=== PATIENT | female | born 1985 | race Caucasian/White ===

== ENCOUNTER 2018-06-28 12:37 | Emergency (ER) | payer OTHER ==
[2018-06-28 12:43] VITALS: BMI 41.1
--- NOTE | 2018-06-28 13:01 | PDOC ---
Attending Attestation - Resident Resident Name: Sa Meganira - ED Attending Attestation I have performed the following: I have examined & evaluated the patient, The case was reviewed & discussed with the resident, I agree w/resident's findings & plan, Exceptions are as noted - HPI HPI: 32 yo F history HTN, panic disorder presents with palpitations and chest tightness for past 3 days. She states she has been having a lot of anxiety, has history of panic attacks in the past. She used to take klonopin, has not been on it recently. Denies SOB, leg swelling, N/V, diaphoresis. She states she feels anxious then feels the palpitations afterwards, not the reverse. No prior heart history. - Physicial Exam PE: GENERAL: Awake, alert, and fully oriented, in no acute distress HEAD: No signs of trauma EYES: PERRLA, EOMI, sclera anicteric, conjunctiva clear ENT: Auricles normal inspection, hearing grossly normal, nares patent, oropharynx clear without exudates. Moist mucosa NECK: Normal ROM, supple, no lymphadenopathy, JVD, or masses LUNGS: Breath sounds equal, clear to auscultation bilaterally. No wheezes, and no crackles HEART: Regular rate and rhythm, normal S1 and S2, no murmurs, rubs or gallops ABDOMEN: Soft, nontender, normoactive bowel sounds. No guarding, no rebound. No masses EXTREMITIES: Normal range of motion, no edema. No clubbing or cyanosis. No cords, erythema, or tenderness NEUROLOGICAL: Cranial nerves II through XII grossly intact. Normal speech, normal gait SKIN: Warm, Dry, normal turgor, no rashes or lesions noted. - Medical Decision Making Pt with history of anxiety, presenting with palpitations. Low risk for ACS and PE by clinical eval. Labs wnl. Patient states she can f/u with Dr. Corona tomorrow.
--- NOTE | 2018-06-28 13:22 | PDOC ---
History of Present Illness - General Chief Complaint: Psychiatric Stated Complaint: FEELING ANXIOUS Time Seen by Provider: 06/28/18 12:49 History Source: Patient, Well Puller Head Used ([id number]) Exam Limitations: Language Barrier - History of Present Illness Initial Comments: 06/28/18 13:17 Pt is a 32yo f with PMH of HTN, panic disorder presenting to ED with complaints of palpitations and chest tightness that started 3 days ago at around 8pm. Pt says she started having palpitations and chest tightness and SOB. These would last briefly but have been coming and going every 6 hours or so since . She has not had symptoms like this before. She had symptoms again this morning which prompted her to come to the ED. Her last panic attack was early June when patient was in [place]. She states that at that time she felt more nervous and nauseous. She was given Klonopin because she was on this medication before which helped. Pt stopped taking Klonopin over a year ago because she says she was feeling better. She endorses slight headache and body ache after symptoms diminish. She denies changes in vision, tinnitus, dizziness, abdominal pain, n/v/d, urinary symptoms. LMP was 1 week ago. She denies hallucinations and HI/SI. PMD: Chloe PMH: htn Meds: atenolol, hctz Social: denies Allergies: pcn, asa Past History - Past Medical History Allergies/Adverse Reactions: Allergies Allergy/AdvReac Type Severity Reaction Status Date / Time aspirin Allergy Verified 06/28/18 12:43 Penicillins Allergy Verified 06/28/18 12:43 Home Medications: Ambulatory Orders Atenolol [Tenormin] 1 tab PO DAILY 06/28/18 Atenolol [Tenormin] 100 mg PO DAILY 06/28/18 Hydrochlorothiazide 12.5 mg PO AM 06/28/18 clonazePAM [Klonopin -] 1 tab PO BID 06/28/18 COPD: No HTN: Yes Psychiatric Problems: Yes (anxeity) - Suicide/Smoking/Psychosocial Hx Smoking History: Never smoked Have you smoked in the past 12 months: No Hx Alcohol Use: No Substance Use Type: None *Physical Exam - Vital Signs Last Vital Signs Temp Pulse Resp BP Pulse Ox 86 18 139/79 99 06/28/18 12:41 06/28/18 12:41 06/28/18 12:41 06/28/18 12:41 ED Treatment Course - LABORATORY CBC & Chemistry Diagram: 06/28/18 13:38 06/28/18 13:38 Medical Decision Making - Medical Decision Making 06/28/18 13:21 Pt is a 32yo f with PMH of HTN, panic disorder presenting to ED with complaints of palpitations and chest tightness that started 3 days ago at around 8pm. Pt says she started having palpitations and chest tightness and SOB 06/28/18 14:30 added on TSH EKG: nsr. T wave flattening of T in III, V4. inverted in V1, V2, V3. Normal NH and QTc. 06/28/18 14:41 *DC/Admit/Observation/Transfer Diagnosis at time of Disposition: Chest tightness, Palpitation - Discharge Dispostion Disposition: HOME Condition at time of disposition: Good Decision to Admit order: No - Referrals Referrals: Adrienne Torres MD [Primary Care Provider] - - Patient Instructions Printed Discharge Instructions: DI for Atypical Chest Pain, DI for Palpitations Additional Instructions: Hoy te vieron aqu por ansiedad, opresin en el pecho y palpitaciones. Tus pruebas fueron normales. Le recomiendo que eyal linda ifeanyi con el Dr. Corona para un mayor manejo y evaluacin de jazzy sntomas. Si sigues teniendo palpitaciones y te sientes mareado, creo que penny la kimbrough chad a un cardilogo. Un cardilogo afiliado a [facility] es el Dr. Duvall Regrese a la anthony de emergencias si las palpitaciones empeoran, tiene dificultad para respirar, se siente mareado, el dolor de pecho empeora, se desmaya, o si se presenta algn sntoma nuevo. Matthew You were seen here today for anxiety, chest tightness and palpitations. Your tests were normal. I recommend you make an appointment with Dr. Corona for further management and evaluation of your symptoms. If you continue to have palpitations and you feel lightheaded, I think it is worth seeing a opal polisher. A opal polisher affiliated with this hospital is Dr. Duvall Please come back to the emergency room if palpitations get worse, you feel short of breath, you feel lightheaded, chest pain gets worse, you pass out, or if any new concerning symptom develops. Thank you Print Language: [place] ISLAND[place] - Post Discharge Activity
[2018-06-28 13:44] LABS: BASO % 0.3 % (0-2.0); EOS % 1.2 % (0-4.5); HEMATOCRIT 39.6 % (32.4-45.2); LYMPH % 20.3 % (8-40); MCH 28.6 pg (25.7-33.7); MCHC 32.8 g/dl (32.0-36.0); MEAN CELL VOLUME 87.2 fl (80-96); MEAN PLT VOLUME 8.1 fl (7.5-11.1); NEUT % 73.2 % (42.8-82.8); PLATELET COUNT 275 K/MM3 (134-434); RBC 4.54 M/mm3 (3.60-5.2); RDW 13.3 % (11.6-15.6); WHITE BLOOD COUNT 11.1 K/mm3 (4.0-10.0)
[2018-06-28 14:16] LABS: ALBUMIN 3.9 g/dl (3.4-5.0); ALK PHOS 106 U/L (45-117); ANION GAP 9 MMOL/L (8-16); BILIRUBIN,TOTAL 0.3 mg/dL (0.2-1); BLOOD UREA NITROGEN 9 mg/dL (7-18); CALCIUM 9.3 mg/dL (8.5-10.1); CHLORIDE 101 mmol/L (98-107); CO2 28 mmol/L (21-32); CREATININE 0.6 mg/dL (0.55-1.3); GLUCOSE,RANDOM 137 mg/dL (74-106); SGOT/AST 39 U/L (15-37); SGPT/ALT 65 U/L (13-61); SODIUM 137 mmol/L (136-145); TOT PROT 7.7 g/dl (6.4-8.2)
[2018-06-28 14:54] VITALS: BP 116/68; PULSE 70; TEMP 98.1
--- NOTE | 2018-06-29 18:32 | EKG ---
Test Reason : Blood Pressure : / mmHG Vent. Rate : 085 BPM Atrial Rate : 085 BPM P-R Int : 160 ms QRS Dur : 086 ms QT Int : 370 ms P-R-T Axes : 026 030 023 degrees QTc Int : 440 ms NORMAL SINUS RHYTHM T WAVE ABNORMALITY, CONSIDER ANTERIOR ISCHEMIA ABNORMAL ECG NO PREVIOUS ECGS AVAILABLE Confirmed by JANELL LOMBARDO MD ([id number]) on 06/29/2018 6:31:40 PM Referred By: Confirmed By:JANELL LOMBARDO MD
== END 2018-06-28 15:13 | disposition home or self-care (01) ==
LOC: JER 12:37
DX: R07.9 Chest pain, unspecified (principal); R00.2 Palpitations; F41.9 Anxiety disorder, unspecified; Z88.0 Allergy status to penicillin; Z88.6 Allergy status to analgesic agent
CPT/HCPCS: 36415; 80053; 84443; 84484; 85025; 93005; 93010; 99283-25

== ENCOUNTER 2018-08-19 23:16 | Emergency (ER) | payer OTHER ==
[2018-08-19 23:26] VITALS: BP 140/94; PULSE 97; TEMP 98.1; BMI 41.7
--- NOTE | 2018-08-20 01:19 | PDOC ---
Attending Attestation - Resident Resident Name: Brayan Blackman - ED Attending Attestation I have performed the following: I have examined & evaluated the patient, The case was reviewed & discussed with the resident, I agree w/resident's findings & plan, Exceptions are as noted - HPI HPI: 08/20/18 07:10 33F pmh HTN, panic attacks here with cp. Px started at 9pm, radiating down L arm, worse with inspiration, states she took a klonopin of unknown dose that she purchased on the street. Symptoms have since resolved. - Physicial Exam PE: 08/20/18 07:14 Agree with exam as documented by resident - Medical Decision Making 08/20/18 07:14 Low risk for acs f/u ekg, cxr re-eval
--- NOTE | 2018-08-20 01:52 | PDOC ---
History of Present Illness - General Chief Complaint: Pain Stated Complaint: PANIC ATTACK Time Seen by Provider: 08/20/18 00:57 History Source: Patient Exam Limitations: Language Barrier (Phone network account manager used) - History of Present Illness Initial Comments: 08/20/18 01:43 Patient is 33F with history of HTN and panic attacks here today complaining of chest pain that onset suddenly at 9pm yesterday evening. Patient endorses pain that radiated to her left arm. Pain worsened with movement and inspiration. Pain has since improved and patient states that she feels like her prior costochondritis. LMP 1 day ago, denies leg swelling, prior blood clot, no recent travel, no control. Patient states that she took a "street klonopin ". Denies prior cardiac history. Past History - Past Medical History Allergies/Adverse Reactions: Allergies Allergy/AdvReac Type Severity Reaction Status Date / Time aspirin Allergy Verified 08/19/18 23:28 Penicillins Allergy Verified 08/19/18 23:28 Home Medications: Ambulatory Orders Atenolol [Tenormin -] 50 mg PO DAILY 08/20/18 Clonazepam [Klonopin] 1 mg PO DAILY 08/20/18 Hydrochlorothiazide [Hctz -] 12.5 mg PO DAILY 08/20/18 COPD: No HTN: Yes Psychiatric Problems: Yes (anxeity) - Suicide/Smoking/Psychosocial Hx Smoking History: Never smoked Have you smoked in the past 12 months: No Information on smoking cessation initiated: No Hx Alcohol Use: No Drug/Substance Use Hx: No Substance Use Type: None Review of Systems - Review of Systems Comments:: 08/20/18 01:52 GENERAL/CONSTITUTIONAL: No fever or chills. No weakness. HEAD, EYES, EARS, NOSE AND THROAT: No change in vision. No ear pain or discharge. No sore throat. CARDIOVASCULAR: +chest pain no shortness of breath RESPIRATORY: No cough, wheezing, or hemoptysis. GASTROINTESTINAL: No nausea, vomiting, diarrhea or constipation. GENITOURINARY: No dysuria, frequency, or change in urination. MUSCULOSKELETAL: + l shoulder pain. No neck or back pain. SKIN: No rash NEUROLOGIC: No headache, vertigo, loss of consciousness, or change in strength/ sensation. HEMATOLOGIC/LYMPHATIC: No anemia, easy bleeding, or history of blood clots. ALLERGIC/IMMUNOLOGIC: No hives or skin allergy. *Physical Exam - Vital Signs Last Vital Signs Temp Pulse Resp BP Pulse Ox 98.1 F 97 H 16 140/94 100 08/19/18 23:20 08/19/18 23:20 08/19/18 23:20 08/19/18 23:20 08/19/18 23:20 - Physical Exam Comments: 08/20/18 01:53 GENERAL: Awake, alert, and fully oriented, in no acute distress HEAD: No signs of trauma, normocephalic, atraumatic EYES: PERRLA, EOMI, sclera anicteric, conjunctiva clear ENT: Auricles normal inspection, hearing grossly normal, nares patent, oropharynx clear without exudates. Moist mucosa NECK: Normal ROM, supple, no lymphadenopathy, JVD, or masses LUNGS: No distress, speaks full sentences, clear to auscultation bilaterally HEART: Regular rate and rhythm, normal S1 and S2, no murmurs, rubs or gallops, peripheral pulses normal and equal bilaterally. ABDOMEN: Soft, nontender, normoactive bowel sounds. No guarding, no rebound. No masses EXTREMITIES: Normal inspection, Normal range of motion, no edema. No clubbing or cyanosis. NEUROLOGICAL: Cranial nerves II through XII grossly intact. Normal speech, normal gait, no focal sensorimotor deficits SKIN: Warm, Dry, normal turgor, no rashes or lesions noted. Moderate Sedation - Procedure Monitoring Vital Signs: Procedure Monitoring Vital Signs Temperature 98.1 F 08/19/18 23:20 Pulse Rate 97 H 08/19/18 23:20 Respiratory Rate 16 08/19/18 23:20 Blood Pressure 140/94 08/19/18 23:20 O2 Sat by Pulse Oximetry (%) 100 08/19/18 23:20 ED Treatment Course - ADDITIONAL ORDERS Additional order review: Laboratory Results 08/20/18 01:33 Urine HCG, Qual Negative - RADIOLOGY Radiology Studies Ordered: Category Date Time Status CHEST PA & LAT [RAD] Stat Radiology 08/20/18 01:13 Ordered Medical Decision Making - Medical Decision Making 08/20/18 01:53 Patient is 33F here today with chest pain radiating to her arm. Atypical for ACS , no syncopal symptoms, no focal motor deficits suggestive of stroke. Will evaluate with ekg, upreg, cxr. No PE risk factors. Likely discharge home. EKG shows normal sinus rhythm with rate of 100.No st elevations/depressions. Normal axis. Normal intervals. Inverted t wave in III. U preg negative. 08/20/18 05:58 CXR shows no acute cardiopulmonary process. Will discharge home with primary care follow up. *DC/Admit/Observation/Transfer Diagnosis at time of Disposition: Atypical chest pain - Discharge Dispostion Disposition: HOME Condition at time of disposition: Good Decision to Admit order: No - Referrals Referrals: Adrienne Torres MD [Primary Care Provider] - - Patient Instructions Printed Discharge Instructions: DI for Atypical Chest Pain Additional Instructions: Please follow up with your primary care doctor this week. Please return if you have any new worsening or concerning symptoms, especially increasing pain, fever, and shortness of breath. - Post Discharge Activity
--- NOTE | 2018-08-20 12:46 | EKG ---
Test Reason : Blood Pressure : / mmHG Vent. Rate : 100 BPM Atrial Rate : 100 BPM P-R Int : 140 ms QRS Dur : 076 ms QT Int : 360 ms P-R-T Axes : 018 017 001 degrees QTc Int : 464 ms NORMAL SINUS RHYTHM MINIMAL VOLTAGE CRITERIA FOR LVH, MAY BE NORMAL VARIANT BORDERLINE ECG WHEN COMPARED WITH ECG OF 20-AUG-2018 01:37, NO SIGNIFICANT CHANGE WAS FOUND Confirmed by ALEE DODGE, ROMARIO ([id number]) on 08/20/2018 12:45:21 PM Referred By: Confirmed By:ROMARIO VICKERS MD
== END 2018-08-20 06:08 | disposition home or self-care (01) ==
LOC: JER 23:16
DX: R07.9 Chest pain, unspecified (principal); F41.9 Anxiety disorder, unspecified
CPT/HCPCS: 71046-TC-FY; 84703; 93005; 93010; 99282-25

== ENCOUNTER 2018-11-21 02:24 | Emergency (ER) | payer OTHER ==
--- NOTE | 2018-11-21 02:51 | PDOC ---
History of Present Illness - General Stated Complaint: HEADACHE/DIABETIC Time Seen by Provider: 11/21/18 02:51 - History of Present Illness Initial Comments: 11/21/18 04:22 htn,dm ,panic attack headache friday radiating from back to front mild eye sensitivity and neck pain R hand numbness and tingling no n/v/ cp, sob gradual onset blood sugar 213 at pcp wed Tylenol dfor headache with relief for 1 hour went to [facility] and she got Tylenol for that history of headaches, no headaches that lasted this long before Past History - Past Medical History Allergies/Adverse Reactions: Allergies Allergy/AdvReac Type Severity Reaction Status Date / Time aspirin Allergy Verified 11/21/18 02:52 ibuprofen [From Motrin] Allergy Verified 11/21/18 03:24 Penicillins Allergy Verified 11/21/18 02:52 Home Medications: Ambulatory Orders Atenolol [Tenormin -] 50 mg PO DAILY 08/20/18 Hydrochlorothiazide [Hctz -] 12.5 mg PO DAILY 08/20/18 metFORMIN HCL [Metformin HCl] 500 mg PO DAILY 11/21/18 COPD: No HTN: Yes Psychiatric Problems: Yes (anxeity) - Suicide/Smoking/Psychosocial Hx Smoking History: Never smoked Have you smoked in the past 12 months: No Hx Alcohol Use: No Drug/Substance Use Hx: No Substance Use Type: None ED Treatment Course - LABORATORY CBC & Chemistry Diagram: 11/21/18 04:44 11/21/18 04:44 Medical Decision Making - Medical Decision Making 11/21/18 04:25 ED Course: migriane tension CT head to r/o intracranial pathology 11/21/18 06:27 11/21/18 06:30 Patient reassessed, feels improved. wants to go home *DC/Admit/Observation/Transfer Diagnosis at time of Disposition: Migraine - Discharge Dispostion Disposition: HOME Condition at time of disposition: Stable Decision to Admit order: No - Referrals Referrals: Adrienne Torres MD [Primary Care Provider] - Felice Price MD [Staff Physician] - - Patient Instructions Printed Discharge Instructions: DI for Migraine Additional Instructions: You were seen in the ED for complaints of headache. In the ED you were evaluated with labwork and imaging. Your results were unremarkable. There does not appear to be an acute need for immediate hospitalization. You are advised to follow up with your Primary Care Physician within 1 week. You were given a referral to Neurology and advised to follow up within 1 week. Take over the counter Tylenol and Motrin for relief. Return to the ED immediately if you experience worsening headache, neck pain, nausea, vomiting, changes in vision or hearing or loss of consciousness. Usted fue visto en el servicio de urgencias por quejas de dolor de stu. En el servicio de urgencias se le evalu con trabajo de laboratorio e imgenes. Ayala resultados no fueron notables. No parece jordan linda necesidad aguda de hospitalizacin inmediata. Se recomienda realizar un seguimiento con patel mdico de atencin primaria dentro de 1 semana. Se le jose linda referencia a Neurologa y se le recomend hacer un seguimiento dentro de 1 semana. Donis el contador Tylenol y Motrin para el alivio. Regrese a la anthony de urgencias inmediatamente si experimenta un empeoramiento del dolor de stu, dolor de sheila, nuseas, vmitos, cambios en la visin, audicin o prdida de la conciencia. - Post Discharge Activity
[2018-11-21 03:22] VITALS: BMI 43.2
[2018-11-21] MEDS ORDERED: PROCHLORPERAZINE MALEATE 5 MG TABLET PO ONE (04:25)
[2018-11-21] MEDS ORDERED: SODIUM CHLORIDE 1,000 ML IV SCH (04:30)
[2018-11-21] MEDS ORDERED: PROCHLORPERAZINE MALEATE 5 MG TABLET ONE (04:31)
[2018-11-21 04:55] LABS: BASO % 0.5 % (0-2.0); EOS % 1.3 % (0-4.5); HEMOGLOBIN 12.8 GM/dL (10.7-15.3); LYMPH % 31.3 % (8-40); MCH 29.4 pg (25.7-33.7); MCHC 33.7 g/dl (32.0-36.0); MEAN CELL VOLUME 87.3 fl (80-96); MEAN PLT VOLUME 8.5 fl (7.5-11.1); MONO % 5.9 % (3.8-10.2); PLATELET COUNT 277 K/MM3 (134-434); RBC 4.35 M/mm3 (3.60-5.2); RDW 13.3 % (11.6-15.6); WHITE BLOOD COUNT 9.7 K/mm3 (4.0-10.0)
[2018-11-21 05:11] LABS: PH,URINE 5.5 (5.0-8.0); URINE APPEARANCE CLEAR; URINE BILIRUBIN NEGATIVE (NEGATIVE); URINE COLOR YELLOW; URINE GLUCOSE (UA) NEGATIVE (NEGATIVE); URINE KETONE NEGATIVE (NEGATIVE); URINE LEUK ESTERASE NEGATIVE (NEGATIVE); URINE NITRITE NEGATIVE (NEGATIVE); URINE PROTEIN NEGATIVE (NEGATIVE); URINE UROBILINOGEN 0.2 mg/dL (0.2-1.0)
--- NOTE | 2018-11-21 05:18 | PDOC ---
Attending Attestation - Resident Resident Name: Yolande Wu - ED Attending Attestation I have performed the following: I have examined & evaluated the patient, The case was reviewed & discussed with the resident, I agree w/resident's findings & plan - HPI HPI: 11/21/18 06:40 Pt comes with headache; states that she has known HAs, however this VILLALPANDO has been lasting extra long. - Physicial Exam PE: 11/21/18 05:58 Agree with resident exam - Medical Decision Making 11/21/18 05:30 All labs are normal. 11/22/18 01:50 Patient Name: RUFINO BETANCOURT THIS IS A PRELIMINARY REPORT FROM [facility] DATE OF SERVICE: 2018-11-21 05:48:25 IMAGES: 137 EXAM: HEAD CT WITHOUT CONTRAST HISTORY: Headache COMPARISON: None. FINDINGS: The ventricular system is midline and nondilated. The sulcal pattern is normal for the patient's age. There is no bleed, mass, extra-axial fluid collection or mass effect. No skull fracture or skull lesion is identified. The visualized paranasal sinuses and mastoid air cells are clear other than mild mucosal thickening in the maxillary sinuses. IMPRESSION: No acute pathology. Pt sent home; follow with neuro; no need for LP at this time; however pt understands that she needs to r/o pseudotumor cerebri for continuing or worsening VILLALPANDO.
[2018-11-21 05:23] LABS: ALBUMIN 3.9 g/dl (3.4-5.0); ALK PHOS 99 U/L (45-117); ANION GAP 6 MMOL/L (8-16); BILIRUBIN,TOTAL 0.3 mg/dL (0.2-1); BLOOD UREA NITROGEN 10 mg/dL (7-18); CALCIUM 9.2 mg/dL (8.5-10.1); CHLORIDE 102 mmol/L (98-107); CO2 29 mmol/L (21-32); CREATININE 0.5 mg/dL (0.55-1.3); GLUCOSE,RANDOM 109 mg/dL (74-106); SGOT/AST 29 U/L (15-37); SGPT/ALT 69 U/L (13-61); SODIUM 137 mmol/L (136-145); TOT PROT 7.7 g/dl (6.4-8.2)
[2018-11-21 06:34] VITALS: BP 113/82; TEMP 98.1
[2018-11-21 06:39] VITALS: PULSE 77
== END 2018-11-21 06:44 | disposition home or self-care (01) ==
LOC: JER 02:24
DX: G43.909 Migraine, unspecified, not intractable, without status migrainosus (principal)
CPT/HCPCS: 36415; 70450-TC; 80053; 81003; 82962; 84703; 85025; 99282-25; J7030

== ENCOUNTER 2018-11-26 02:23 | Emergency (ER) | payer OTHER ==
--- NOTE | 2018-11-26 02:33 | PDOC ---
History of Present Illness - General Stated Complaint: PAIN Time Seen by Provider: 11/26/18 02:32 History Source: Patient Exam Limitations: No Limitations - History of Present Illness Initial Comments: 11/26/18 02:54 33 year old female with PMH HTN, DM, panic disorder presented to ED for evaluation of rash to chest since 0100. She stated she is nervous about her diabetes, and feels like she is experiencing a panic attack. She said yesterday her sugar was int he 130s and the day prior her sugar was in the 180s, which has been making her nervous. She stated that she often gets a rash when she has a panic attack. She denied fever, chills, nausea, vomiting, shortness of breath , cough, abdominal pain, chest pain. Allergies: ASA, ibuprofen, PCN Past History - Past Medical History Allergies/Adverse Reactions: Allergies Allergy/AdvReac Type Severity Reaction Status Date / Time aspirin Allergy Verified 11/26/18 02:47 ibuprofen [From Motrin] Allergy Verified 11/26/18 02:47 Penicillins Allergy Verified 11/26/18 02:47 Home Medications: Ambulatory Orders Atenolol [Tenormin -] 50 mg PO DAILY 08/20/18 Hydrochlorothiazide [Hctz -] 12.5 mg PO DAILY 08/20/18 metFORMIN HCL [Metformin HCl] 500 mg PO DAILY 11/21/18 COPD: No Diabetes: Yes HTN: Yes Psychiatric Problems: Yes (anxeity) - Suicide/Smoking/Psychosocial Hx Smoking History: Never smoked Have you smoked in the past 12 months: No Hx Alcohol Use: No Drug/Substance Use Hx: No Substance Use Type: None Review of Systems - Review of Systems Able to Perform ROS?: Yes Comments:: 11/26/18 02:56 General: denied fever, chills, generalized weakness. HEENT: denied sore throat, rhinorrhea, ear pain. Heart: denied chest pain, palpitations, syncope, diaphoresis. Respiratory: denied shortness of breath, cough, sputum production, hemoptysis. Abdomen: denied abdominal pain, nausea, vomiting, diarrhea, constipation, blood in stool. : denied dysuria, increased urinary frequency, hematuria, urinary incontinence , flank pain. Back: denied back pain. Musculoskeletal: denied joint pain, muscle pain, joint swelling. Neurological: denied headache, dizziness, numbness, tingling, weakness. Skin: admitted to rash. denied laceration, abrasion. *Physical Exam - Physical Exam Comments: 11/26/18 02:56 Constitutional: Well-nourished, Well-developed, appearing stated age. HEENT: head is normocephalic, atraumatic. EOMI. PERRLA. Neck: supple. Full ROM. Heart: regular rhythm. no murmurs, rubs or gallops. Lungs: clear to auscultation bilaterally. no crackles, rhonchi or wheezing. no stridor. Abdomen: soft, nontender. normal bowel sounds. no rebound, guarding, masses. Extremities: peripheral pulses intact. no lower extremity edema. Neurological: CN 2-12 grossly intact. moves all four extremities. Psych: awake, alert, oriented x3. follows commands. answers questions appropriately. Skin: macular erythematous rash to anterior chest. Medical Decision Making - Medical Decision Making 11/26/18 02:56 33 year old female with above PMH presented to ED for evaluation of rash to chest. Initial Vital Signs Temp Pulse Resp BP Pulse Ox 98.0 F 92 H 18 136/81 100 11/26/18 02:49 11/26/18 02:49 11/26/18 02:49 11/26/18 02:49 11/26/18 02:49 Afebrile. No tachycardia. No tachypnea. Mild hypertension. No hypoxia on room air. Labs ordered: BGM Imaging ordered: none Medications ordered: none 11/26/18 03:25 BGM 117 EKG performed at 0313: rate 90, regular rhythm, normal axis, normal intervals, flipped T in III, flat T in V4/aVF, otherwise no acute ST changes. Similar to prior EKG performed 06/28/18. Rash resolved, no longer present. Pt reported she is feeling better. *DC/Admit/Observation/Transfer Diagnosis at time of Disposition: Rash, Palpitations - Discharge Dispostion Disposition: HOME Condition at time of disposition: Improved Decision to Admit order: No - Referrals Referrals: Adrienne Torres MD [Primary Care Provider] - - Patient Instructions Printed Discharge Instructions: DI for Diabetes Type 2, DI for Panic Disorder Additional Instructions: You were seen today for rash and palpitations. Your EKG was normal. Your sugar was normal. Follow up with your primary care doctor in 1-2 days. Bring the paperwork given to you today to your appointment. Return to the Emergency Department for chest pain, shortness of breath, palpitations, lightheadedness like you may pass out, fever, vomiting, severe back pain or any other new, worsening or severe symptoms. - Post Discharge Activity Forms/Work/School Notes: Back to Work
[2018-11-26 02:51] VITALS: BMI 41.5
--- NOTE | 2018-11-26 03:20 | PDOC ---
Attending Attestation - Resident Resident Name: Chapis Ellison - ED Attending Attestation I have performed the following: I have examined & evaluated the patient, The case was reviewed & discussed with the resident, I agree w/resident's findings & plan - HPI HPI: 11/26/18 03:17 33 year old female with PMH HTN, DM, panic disorder presented to ED for evaluation of rash to chest since 0100. brief episode of palpitations when she woke up with panic attack. she had burning rash and sensation to her chest that caused her anxiety. - Physicial Exam PE: 11/26/18 03:18 NAD, well appearing, PERRL, EOMI, MMM, nl conjunctiva, anicteric; neck supple. lungs clear, RRR, abdomen soft nontender obese. LANDAVERDE x4, no focal neuro deficits. No peripheral edema. normal color for ethnicity, WWP. no rash on chest , abdomen or back. 11/26/18 03:35 - Medical Decision Making 11/26/18 03:18 hpi as documented VS reviewed, wnl EKG normal sinus rhythm at 67, no interval abnormalities, narrow QRS, ST and T wave segments and morphology normal. Nonspecific T wave abnormalities similar to prior with TWI in III, flattening in AVF blood sugar normal here. well appearing otherwise. NAD. no recurrence of sx, no cp or sob, or respiratory distress. no rash on exam dispo: discharge in stable condition, return precautions, anxiolysis and stress reduction, benadryl prn if needed for the rash. pcp followup. Pt informed of my clinical impression, treatment recommendations and disposition plan. All questions answered to patient's satisfaction and expressed understanding and comfort with this. Reasons for returning to the ED sooner discussed including new or persistent/worsening symptoms with the patient otherwise, follow up with primary care physician. At the time of discharge, the patient is alert, clinically improved, tolerating po and verbalizes understanding of instructions, satisfied with the care received and felt comfortable with the plan. Patient does not suffer from an acute life- threatening medical condition at this time she is safe for outpatient follow- up. 11/26/18 03:26 11/26/18 03:33 11/26/18 03:35 Heart Score/ECG Review #1 ECG reviewed & interpreted by me at: 03:15 General ECG Interpretation: Sinus Rhythm, Normal Rate, Normal Intervals Compared to previous ECG there are: No significant change 11/26/18 03:27 EKG normal sinus rhythm , no interval abnormalities, narrow QRS, ST and T wave segments and morphology normal. Nonspecific T wave abnormalities TWI in III, flattening in AVF, similar to prior.
[2018-11-26 03:54] VITALS: BP 128/68; PULSE 82; TEMP 98.1
--- NOTE | 2018-11-26 12:14 | EKG ---
Test Reason : Blood Pressure : / mmHG Vent. Rate : 090 BPM Atrial Rate : 090 BPM P-R Int : 144 ms QRS Dur : 074 ms QT Int : 374 ms P-R-T Axes : 021 016 004 degrees QTc Int : 457 ms NORMAL SINUS RHYTHM MINIMAL VOLTAGE CRITERIA FOR LVH, MAY BE NORMAL VARIANT BORDERLINE ECG WHEN COMPARED WITH ECG OF 20-AUG-2018 01:38, NO SIGNIFICANT CHANGE WAS FOUND Confirmed by ALEE ODDGE, ROMARIO ([id number]) on 11/26/2018 12:13:49 PM Referred By: Confirmed By:ROMARIO VICKERS MD
== END 2018-11-26 03:55 | disposition home or self-care (01) ==
LOC: JER 02:23
DX: R21 Rash and other nonspecific skin eruption (principal); R00.2 Palpitations; E11.9 Type 2 diabetes mellitus without complications; Z79.84 Long term (current) use of oral hypoglycemic drugs; I10 Essential (primary) hypertension; F41.0 Panic disorder [episodic paroxysmal anxiety]
CPT/HCPCS: 82962; 93005; 93010; 99282-25

== ENCOUNTER 2019-02-14 17:28 | Emergency (ER) | payer OTHER ==
[2019-02-14 17:34] VITALS: BP 149/81; PULSE 80; TEMP 98.4; BMI 88.2
--- NOTE | 2019-02-14 18:32 | PDOC ---
History of Present Illness - General Chief Complaint: Chest Pain Stated Complaint: LOW BLOOD SUGR Time Seen by Provider: 02/14/19 18:13 History Source: Patient Exam Limitations: No Limitations - History of Present Illness Initial Comments: 02/14/19 18:27 HISTORY OF PRESENT ILLNESS: This is a 33-year-old woman past medical history of anxiety, hypertension, diabetes (medication DC'd one month ago after resulting within normal a1c) presents emergency for evaluation of midsternal chest pain starting at approximately 4 AM. Patient reports she woke up at 4 AM feeling like her heart was racing. She checked her blood sugar the time and had a result of 27 mg/dL. Patient had some juice and the fluttering sensation in her chest stopped. Patient with continued midsternal chest pain since that time until now. Patient denies any shortness of breath, fevers, chills, nausea, vomiting or sweating. She reports the pain worsens when she pushes on it or moves her arms. No recent travel or sick contacts. PAST MEDICAL HISTORY: see HPI SURGICAL HISTORY: Denies ALLERGIES: ASA, motrin, PCN REVIEW OF SYSTEMS General/Constitutional: Denies fever or chills. Denies weakness, weight change. HEENT: Denies change in vision. Denies ear pain or discharge. Denies sore throat. Cardiovascular: see HPI Respiratory: Denies cough, wheezing, or hemoptysis. Gastrointestinal: Denies nausea, vomiting, diarrhea or constipation. Denies rectal bleeding. Genitourinary: Denies dysuria, frequency, or change in urination. Musculoskeletal: Denies joint or muscle swelling or pain. Denies neck or back pain. Skin and breasts: Denies rash or easy bruising. Neurologic: Denies headache, vertigo, loss of consciousness, or loss of sensation. Psychiatric: Denies depression or anxiety. Endocrine: see HPI Hematologic/Lymphatic: Denies anemia, easy bleeding, or history of blood clots. Allergic/Immunologic: Denies hives or skin allergy. Denies latex allergy. PHYSICAL EXAM General Appearance: Well-appearing, appropriately dressed. No apparent distress , no intoxication. HEENT: EOMI, PERRLA, normal ENT inspection, normal voice, TMs normal, pharynx normal. No conjunctival pallor. No photophobia, scleral icterus. Neck: Supple. Trachea midline. No tenderness, rigidity, carotid bruit, stridor , lymphadenopathy, or thyromegaly. Respiratory/Chest: Lungs CTAB. No shortness of breath, chest tenderness, respiratory distress, accessory muscle use. No crackles, rales, rhonchi, stridor , wheezing, dullness Cardiovascular: RRR. S1, S2. No JVD, murmur, bradycardia, tachycardia. Reproducible pain over the distal third of the sternum with light palpation. Vascular Pulses: Dorsalis-Pedis (R): 2+, Dorsalis-Pedis (L): 2+ Gastrointestinal/Abdominal: Normal bowel sounds. Abdomen soft, non-distended. No tenderness or rebound tenderness. No organomegaly, pulsatile mass, guarding, hernia, hepatomegaly, splenomegaly. Lymphatic: No adenopathy, tenderness. Musculoskeletal/Extremities: Normal inspection. FROM of all extremities, normal capillary refill. Pelvis Stable. No CVA tenderness. No tenderness to extremities, pedal edema, swelling, erythema or deformity. Integumentary: Appropriate color, dry, warm. 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 Fully oriented, alert. Appropriate mood/affect. Motor strength 5/5. No appreciable EOM palsy, facial droop or sensory deficit. Past History - Past Medical History Allergies/Adverse Reactions: Allergies Allergy/AdvReac Type Severity Reaction Status Date / Time aspirin Allergy Verified 02/14/19 17:34 ibuprofen [From Motrin] Allergy Verified 02/14/19 17:34 Penicillins Allergy Verified 02/14/19 17:34 Home Medications: Ambulatory Orders Atenolol [Tenormin -] 50 mg PO DAILY 08/20/18 Hydrochlorothiazide [Hctz -] 12.5 mg PO DAILY 08/20/18 COPD: No Diabetes: Yes HTN: Yes Psychiatric Problems: Yes (anxeity) - Immunization History Td Vaccination: Yes TDAP Vaccination: Yes Immunization Up to Date: Yes - Suicide/Smoking/Psychosocial Hx Smoking History: Never smoked Have you smoked in the past 12 months: No Hx Alcohol Use: No Drug/Substance Use Hx: No Substance Use Type: None *Physical Exam - Vital Signs Last Vital Signs Temp Pulse Resp BP Pulse Ox 98.4 F 80 18 149/81 99 02/14/19 17:33 02/14/19 17:33 02/14/19 17:33 02/14/19 17:33 02/14/19 17:33 ED Treatment Course - LABORATORY CBC & Chemistry Diagram: 02/14/19 18:42 02/14/19 18:42 - ADDITIONAL ORDERS Additional order review: Laboratory Results 02/14/19 02/14/19 02/14/19 18:58 18:42 18:42 PT with INR 13.50 H INR 1.14 H Sodium 139 Potassium 3.7 Chloride 104 Carbon Dioxide 30 Anion Gap 5 L BUN 10.9 Creatinine 0.7 Est GFR (CKD-EPI)AfAm 132.87 Est GFR (CKD-EPI)NonAf 114.64 POC Glucometer Random Glucose 106 Calcium 9.5 Magnesium 2.3 Total Bilirubin 0.2 AST 23 ALT 47 Alkaline Phosphatase 101 Creatine Kinase 111 Troponin I < 0.02 Total Protein 7.8 Albumin 4.2 Urine HCG, Qual Negative 02/14/19 18:31 PT with INR INR Sodium Potassium Chloride Carbon Dioxide Anion Gap BUN Creatinine Est GFR (CKD-EPI)AfAm Est GFR (CKD-EPI)NonAf POC Glucometer 104 Random Glucose Calcium Magnesium Total Bilirubin AST ALT Alkaline Phosphatase Creatine Kinase Troponin I Total Protein Albumin Urine HCG, Qual 02/14/19 02/14/19 18:42 18:31 RBC 4.59 MCV 85.9 MCHC 33.6 RDW 13.4 MPV 8.4 Neutrophils % 63.5 Lymphocytes % 27.7 Monocytes % 6.5 Eosinophils % 1.4 Basophils % 0.9 POC Glucometer 104 - RADIOLOGY Radiology Studies Ordered: Category Date Time Status CHEST PA & LAT [RAD] Stat Radiology 02/14/19 18:22 Taken Medical Decision Making - Medical Decision Making 02/14/19 18:30 A/P: 33-year-old woman with mid sternal chest pain after episode of hypoglycemia As pain is reproducible this is likely a costochondritis. Given patient's history I will rule out ACS, pneumonia. Patient has no risk factors for PE. Labs including cardiac profile Fingerstick EKG Chest x-ray Urine Reassess 02/14/19 20:26 EKG sinus rhythm with rate of 88. Normal intervals present. Normal axis noted. T -wave inversions present in V1. T-wave flattening noted in V2 and V3. No and T elevations or depressions noted. CBC is unremarkable. Chemistries are unremarkable including troponin less than 0.02 Coagulation profile is within normal limits Chest x-ray as read by me: Angles are sharp. Cardiac silhouette is mildly enlarged but unchanged from previous study. Lung luna are clear without infiltrates or consolidations present I'll discharge the patient home to follow-up with her primary doctor. *DC/Admit/Observation/Transfer Diagnosis at time of Disposition: Hypoglycemia, Musculoskeletal chest pain - Discharge Dispostion Disposition: HOME Condition at time of disposition: Improved Decision to Admit order: No - Referrals - Patient Instructions Additional Instructions: Take Tylenol or Motrin as directed by manufacturers instructions as needed for pain. Your emergency department evaluation is incomplete and see follow-up with her regular doctor. Return to emergency department for any new or worsening symptoms. Thank you very much for choosing us to provide your emergent health care needs. [place] Tylenol o Motrin yolanda lo indican las instrucciones del fabricante segn sea necesario para el dolor. La evaluacin de patel departamento de emergencias est incompleta y chad el seguimiento con patel mdico de cabecera. Regrese al departamento de emergencias para cualquier sntoma nuevo o que empeore. Muchas kolton por elegirnos para satisfacer jazzy necesidades de atencin mdica de emergencia. - Post Discharge Activity
[2019-02-14 18:54] LABS: BASO % 0.9 % (0-2.0); EOS % 1.4 % (0-4.5); HEMATOCRIT 39.4 % (32.4-45.2); HEMOGLOBIN 13.2 GM/dL (10.7-15.3); LYMPH % 27.7 % (8-40); MCH 28.8 pg (25.7-33.7); MCHC 33.6 g/dl (32.0-36.0); MEAN CELL VOLUME 85.9 fl (80-96); MEAN PLT VOLUME 8.4 fl (7.5-11.1); MONO % 6.5 % (3.8-10.2); NEUT % 63.5 % (42.8-82.8); PLATELET COUNT 301 K/MM3 (134-434); RBC 4.59 M/mm3 (3.60-5.2); RDW 13.4 % (11.6-15.6); WHITE BLOOD COUNT 10.7 K/mm3 (4.0-10.0)
[2019-02-14 19:20] LABS: ALBUMIN 4.2 g/dl (3.4-5.0); ALK PHOS 101 U/L (45-117); ANION GAP 5 MMOL/L (8-16); BILIRUBIN,TOTAL 0.2 mg/dL (0.2-1); BLOOD UREA NITROGEN 10.9 mg/dL (7-18); CALCIUM 9.5 mg/dL (8.5-10.1); CHLORIDE 104 mmol/L (98-107); CO2 30 mmol/L (21-32); CREATININE 0.7 mg/dL (0.55-1.3); GLUCOSE,RANDOM 106 mg/dL (74-106); MAGNESIUM 2.3 mg/dL (1.8-2.4); POTASSIUM 3.7 mmol/L (3.5-5.1); SGOT/AST 23 U/L (15-37); SGPT/ALT 47 U/L (13-61); SODIUM 139 mmol/L (136-145); TOT PROT 7.8 g/dl (6.4-8.2)
[2019-02-14 19:24] LABS: INR 1.14 (0.83-1.09); PROTHROMBIN TIME (PATIENT) 13.5 SEC (9.7-13.0)
--- NOTE | 2019-02-15 11:20 | EKG ---
Test Reason : Blood Pressure : / mmHG Vent. Rate : 088 BPM Atrial Rate : 088 BPM P-R Int : 164 ms QRS Dur : 080 ms QT Int : 370 ms P-R-T Axes : 019 031 020 degrees QTc Int : 447 ms NORMAL SINUS RHYTHM NORMAL ECG WHEN COMPARED WITH ECG OF 26-NOV-2018 03:13, NO SIGNIFICANT CHANGE WAS FOUND Confirmed by RONEY STERLING MD ([id number]) on 02/15/2019 11:20:08 AM Referred By: Confirmed By:RONEY STERLING MD
== END 2019-02-14 20:02 | disposition home or self-care (01) ==
LOC: JER 17:28
DX: E11.649 Type 2 diabetes mellitus with hypoglycemia without coma (principal); F41.9 Anxiety disorder, unspecified; I10 Essential (primary) hypertension
CPT/HCPCS: 36415; 71046-TC-FY; 80053; 82550; 82962; 83735; 84484; 84703; 85025; 85610; 93005; 93010; 99283-25

== ENCOUNTER 2019-08-10 11:28 | Emergency (ER) | payer OTHER ==
[2019-08-10 11:58] VITALS: BP 114/64; PULSE 65; TEMP 98.5; BMI 38.9
[2019-08-10 12:45] LABS: BASO % 0.9 % (0-2.0); EOS % 1.9 % (0-4.5); HEMATOCRIT 41.1 % (32.4-45.2); HEMOGLOBIN 13.7 GM/dL (10.7-15.3); LYMPH % 27.1 % (8-40); MCH 28.9 pg (25.7-33.7); MCHC 33.2 g/dl (32.0-36.0); MEAN PLT VOLUME 8.4 fl (7.5-11.1); MONO % 5.9 % (3.8-10.2); NEUT % 64.2 % (42.8-82.8); PLATELET COUNT 321 K/MM3 (134-434); RBC 4.72 M/mm3 (3.60-5.2); RDW 13.7 % (11.6-15.6); WHITE BLOOD COUNT 9.5 K/mm3 (4.0-10.0)
[2019-08-10 12:58] LABS: INR 1.07 (0.83-1.09); PROTHROMBIN TIME (PATIENT) 12.6 SEC (9.7-13.0)
[2019-08-10] MEDS ORDERED: SODIUM CHLORIDE 0.9% 500 ML INFUS.BAG IV ONE (13:16)
[2019-08-10] MEDS ORDERED: METOCLOPRAMIDE HCL INJECTION 10 MG/2 ML VIAL IVPUSH ONE (13:16)
[2019-08-10] MEDS ORDERED: ACETAMINOPHEN 1000 MG/100 ML VIAL (NON FORMULARY) IVPB ONE (13:16)
[2019-08-10 13:26] LABS: ALBUMIN 3.9 g/dl (3.4-5.0); BILIRUBIN,TOTAL 0.3 mg/dL (0.2-1); BLOOD UREA NITROGEN 9.8 mg/dL (7-18); CALCIUM 9.6 mg/dL (8.5-10.1); CREATININE 0.6 mg/dL (0.55-1.3); POTASSIUM 3.8 mmol/L (3.5-5.1); TOT PROT 7.9 g/dl (6.4-8.2)
[2019-08-10] MEDS ORDERED: ACETAMINOPHEN INJECTION 100 ML IVPB ONE (13:51)
[2019-08-10] MEDS ORDERED: METOCLOPRAMIDE HCL INJECTION 10 MG/2 ML VIAL ONE (13:55)
--- NOTE | 2019-08-10 14:36 | PDOC ---
History of Present Illness - General Chief Complaint: Headache Stated Complaint: HEADACHE Time Seen by Provider: 08/10/19 12:00 - History of Present Illness Initial Comments: 08/10/19 14:32 34-year-old female presents for evaluation of headache x1 day not typical of her usual headaches Past History - Past Medical History Allergies/Adverse Reactions: Allergies Allergy/AdvReac Type Severity Reaction Status Date / Time aspirin Allergy Verified 02/14/19 17:34 ibuprofen [From Motrin] Allergy Verified 02/14/19 17:34 Penicillins Allergy Verified 02/14/19 17:34 Home Medications: Ambulatory Orders Atenolol [Tenormin -] 50 mg PO DAILY 08/20/18 Hydrochlorothiazide [Hctz -] 12.5 mg PO DAILY 08/20/18 COPD: No Diabetes: Yes HTN: Yes Psychiatric Problems: Yes (anxeity) - Immunization History Td Vaccination: Yes TDAP Vaccination: Yes Immunization Up to Date: Yes - Psycho Social/Smoking Cessation Hx Smoking History: Never smoked Have you smoked in the past 12 months: No Information on smoking cessation initiated: No Hx Alcohol Use: No Drug/Substance Use Hx: No Substance Use Type: None Review of Systems - Review of Systems Constitutional: No: Fever Neurological: Yes: Headache *Physical Exam - Vital Signs Last Vital Signs Temp Pulse Resp BP Pulse Ox 98.5 F 65 17 114/64 95 08/10/19 11:55 08/10/19 11:55 08/10/19 11:55 08/10/19 11:55 08/10/19 11:55 - Physical Exam 08/10/19 14:33 GENERAL: The patient is awake, alert, and fully oriented, in no acute distress. HEAD: Normal with no signs of trauma. EYES: sclera anicteric, conjunctiva clear. ENT: Ears normal tympanic membranes normal oropharynx clear uvula midline NECK: Normal range of motion LUNGS: Breath sounds equal, clear to auscultation bilaterally. No wheezes, and no crackles. HEART: S1 and S2 without murmur, rub or gallop. ABDOMEN: Soft, nontender, normoactive bowel sounds. No guarding, no rebound. No masses. EXTREMITIES: Normal range of motion, no edema. No clubbing or cyanosis. No cords, erythema, or tenderness. NEUROLOGICAL: Cranial nerves II through XII grossly intact. Normal speech, normal gait. PSYCH: Normal mood, normal affect. SKIN: Warm, Dry, normal turgor, no rashes or lesions noted. ED Treatment Course - LABORATORY CBC & Chemistry Diagram: 08/10/19 12:28 08/10/19 12:28 - ADDITIONAL ORDERS Additional order review: Laboratory Results 08/10/19 08/10/19 08/10/19 12:28 12:28 12:28 PT with INR 12.60 INR 1.07 Sodium 138 Potassium 3.8 Chloride 102 Carbon Dioxide 29 Anion Gap 7 L BUN 9.8 Creatinine 0.6 Est GFR (CKD-EPI)AfAm 138.80 Est GFR (CKD-EPI)NonAf 119.76 Random Glucose 113 H Calcium 9.6 Total Bilirubin 0.3 AST 21 ALT 51 Alkaline Phosphatase 114 Total Protein 7.9 Albumin 3.9 Serum , Qual Negative 08/10/19 12:28 RBC 4.72 MCV 87.0 MCHC 33.2 RDW 13.7 MPV 8.4 Neutrophils % 64.2 Lymphocytes % 27.1 Monocytes % 5.9 Eosinophils % 1.9 Basophils % 0.9 - RADIOLOGY Radiology Studies Ordered: Category Date Time Status HEAD CT WITHOUT CONTRAST [CT] Stat CT Scan 08/10/19 12:39 Completed - Medications Given in the ED: ED Medications Discontinued Medications Generic Name Dose Route Start Last Admin Trade Name Lesia PRN Reason Stop Dose Admin Acetaminophen 1,000 mg 08/10/19 13:16 08/10/19 13:54 Ofirmev Injection - IVPB 08/10/19 13:17 1,000 mg ONCE ONE Administration Diphenhydramine HCl 50 mg 08/10/19 13:16 08/10/19 14:07 Benadryl Injection - IVPB 08/10/19 13:17 50 mg ONCE ONE Administration Metoclopramide HCl 10 mg 08/10/19 13:16 08/10/19 14:07 Reglan Injection - IVPUSH 08/10/19 13:17 10 mg ONCE ONE Administration Sodium Chloride 1,000 ml 08/10/19 13:16 08/10/19 13:54 Normal Saline - IV 08/10/19 13:17 1,000 ml ONCE ONE Administration Medical Decision Making - Medical Decision Making 08/10/19 14:33 Negative CAT scan headache relieved with medications and fluids follow-up with neurology Discharge - Discharge Information Problems reviewed: Yes Clinical Impression/Diagnosis: Migraine Condition: Stable Disposition: HOME - Admission No - Follow up/Referral Referrals: Alex Cr MD [Staff Physician] - - Patient Discharge Instructions Patient Printed Discharge Instructions: Migraine -- Adult Additional Instructions: Tylenol Motrin for headaches. Return to the emergency room for worsening symptoms. Without fail follow-up with neurology in 2 to 3 days for further evaluation and treatment options. - Post Discharge Activity
== END 2019-08-10 14:38 | disposition home or self-care (01) ==
LOC: JERFT 11:28
PROC: 3E033NZ Introduction of Analgesics, Hypnotics, Sedatives into Peripheral Vein, Percutaneous Approach (ICD-10-PCS; principal; 2019-08-10)
PROC: 3E033GC Introduction of Other Therapeutic Substance into Peripheral Vein, Percutaneous Approach (ICD-10-PCS; 2019-08-10)
DX: G43.909 Migraine, unspecified, not intractable, without status migrainosus (principal); Z88.0 Allergy status to penicillin; Z88.8 Allergy status to other drugs, medicaments and biological substances
CPT/HCPCS: 36415; 70450-TC; 80053; 84703; 85025; 85610; 99282-25; J0131

== ENCOUNTER 2019-08-26 16:59 | Emergency (ER) | payer OTHER ==
[2019-08-26 17:13] VITALS: BMI 35.2
[2019-08-26] MEDS ORDERED: ACETAMINOPHEN 1000 MG/100 ML VIAL (NON FORMULARY) IVPB ONE (20:08)
[2019-08-26] MEDS ORDERED: SODIUM CHLORIDE 0.9% 500 ML INFUS.BAG IV ONE (20:08)
--- NOTE | 2019-08-26 20:14 | PDOC ---
History of Present Illness - General Chief Complaint: Vaginal Bleeding Stated Complaint: VAGINAL BLEEDING Time Seen by Provider: 08/26/19 19:17 - History of Present Illness Initial Comments: Patricia Francisco is a 34yo woman with a PMH of HTN, DM, anxiety who presents with heavy vaginal bleeding and lower abdominal cramping pain since yesterday. She is Swedish-speaking and was interviewed using phone honeycomb decapper #[id number]. Ms Francisco reports that she normally has irregular periods, last 2 months ago, but they are usually not very heavy. She took the plan B pill two weeks ago with several days of spotting afterwards. Following that, she started to have vaginal discomfort. She saw Dr Roberto williamson 08/24 and was started on antibiotics for a UTI. She then started having vaginal bleeding yesterday. She says that this pain is much heavier than her normal period, and she is having severe pain, which is not typical for her. She is unable to describe the pain but states it is in the bilateral lower abdomen. She also started feeling weak today so came to the hospital. She has not taken any medication for pain at home. She denies that she could be or that she might have an STD but requests testing anyway. Past History - Past Medical History Allergies/Adverse Reactions: Allergies Allergy/AdvReac Type Severity Reaction Status Date / Time aspirin Allergy Verified 02/14/19 17:34 ibuprofen [From Motrin] Allergy Verified 02/14/19 17:34 Penicillins Allergy Verified 02/14/19 17:34 Home Medications: Ambulatory Orders Atenolol [Tenormin -] 50 mg PO DAILY 08/20/18 Hydrochlorothiazide [Hctz -] 12.5 mg PO DAILY 08/20/18 COPD: No Diabetes: Yes HTN: Yes Psychiatric Problems: Yes (anxeity) - Reproductive History Is Patient Now?: No (per patient she is not , however unknown LMP) (#): 1 Para: 1 Cervical CA: No Dysfunctional Uterine Bleeding: No Ectopic : No Endometrial CA: No Polycystic Ovaries: No Tubal Ligation: No - Immunization History Td Vaccination: Yes TDAP Vaccination: Yes Immunization Up to Date: Yes - Psycho Social/Smoking Cessation Hx Smoking History: Never smoked Have you smoked in the past 12 months: No Information on smoking cessation initiated: No Hx Alcohol Use: No Drug/Substance Use Hx: No Substance Use Type: None Review of Systems - Review of Systems Comments:: General: No fevers, no chills, no weight or appetite change, no malaise HEENT: No changes in vision, no changes in hearing, no congestion, no sore throat CV: No chest pain, no palpitations, no LE edema Pulm: No SOB, no cough, no wheezing GI: No nausea or vomiting, no change in bowel habits, no melena : See HPI Musc: No back pain, no joint swelling, no recent injury Skin: No rash, no lesions, no erythema Endo: No excessive thirst, no heat/cold intolerance Heme: No unusual bruising or bleeding, no swollen glands Neuro: No syncope, no numbness/tingling, no focal weakness Vasc: No claudication Psych: No recent change in mood, no SI or HI *Physical Exam - Vital Signs Last Vital Signs Temp Pulse Resp BP Pulse Ox 98.6 F 82 18 116/78 97 08/26/19 17:09 08/26/19 17:09 08/26/19 17:09 08/26/19 17:09 08/26/19 17:09 - Physical Exam General: Comfortable, no acute distress HEENT: PERRL, EOMI, MMM, voice normal, normal neck ROM Cards: RRR, no murmur appreciated Pulm: Comfortable on room air, clear to auscultation bilaterally Abd: Soft, nontender, nondistended : Normal external genitalia. Small amount of dark red blood in vaginal canal. No CMT. Tenderness in b/l adnexa vs overall discomfort with exam Ext: Atraumatic. No LE edema. ROM intact. WWP Skin: Normal color, no rashes or lesions Neuro: A&Ox3, CN grossly intact, normal speech, motor/sensory grossly intact and symmetric Psych: Mood appropriate to situation ED Treatment Course - LABORATORY CBC & Chemistry Diagram: 08/26/19 21:30 08/26/19 21:30 Medical Decision Making - Medical Decision Making 08/26/19 20:13 Patricia Francisco is a 34yo woman with a PMH of HTN, DM, anxiety, currently being treated for UTI, irregular menstruation, h/o recent plan B two weeks ago who presents with heavy vaginal bleeding and lower abdominal cramping pain since yesterday. She states this is much more bleeding and more painful than her normal periods. - Moderate vaginal bleeding consistent with menses on exam. Possible , ectopic, or miscarriage despite recent plan B use - Generalized discomfort on exam, difficulty to determine whether adnexal tenderness or abdominal tenderness. TVUS to evaluate ovaries - CBC, CMP, T&S, UA, UCx, test - Acetaminophen for pain pending preg test results - IVF 08/26/19 22:06 - US completed. No acute abnormalities. Notes left ovarian cyst - Labs pending. UA positive, but pt currently being treated by gynecology for UTI 08/26/19 22:15 - negative. Giving toradol for pain - Chemistry pending, but labs otherwise unremarkable. Hgb normal at 12.8. - Plan to discharge home with gynecology follow up and instructions for pain control. Will discuss return precautions. Discussed with Dr Kristofer Nichole PGY2 Discharge - Discharge Information Problems reviewed: Yes Clinical Impression/Diagnosis: Vaginal bleeding Condition: Stable Disposition: HOME - Admission No - Follow up/Referral Referrals: Nidia Mejia MD [Staff Physician] - - Patient Discharge Instructions Patient Printed Discharge Instructions: DI for Vaginal Bleeding Additional Instructions: Discharge Instructions: You were seen in the emergency department for vaginal bleeding and pain. This is most likely due to your menstrual period. Your blood tests and ultrasound were normal. Home Care and Follow Up: - You may use over the counter medications as needed for pain at home. 650- 1000mg acetaminophen (Tylenol) or 600mg ibuprofen (Motrin or Advil) can be used every 6-8 hours. If needed for continued pain, these medications may be alternated every 3-4 hours. For example, if you take ibuprofen at 9am, you may take acetaminophen at noon, ibuprofen at 3pm, etc. - It is strongly recommended that you take ibuprofen with food to help prevent stomach irritation. - Try using a heating pad for additional pain control. - Do not stop moving around. As much as you can tolerate, continue to do light exercise and stretching exercises. Increase your activity level as much as you can tolerate daily. - If your pain does not improve over the next week, you have been referred to Dr Mejia for follow up. - Seek immediate medical care if you have significant worsening of your symptoms , you have heavy bleeding for more than a week, you faint, or you have any other medical emergency. - Post Discharge Activity
[2019-08-26] MEDS ORDERED: ACETAMINOPHEN INJECTION 100 ML IVPB ONE (21:09)
--- NOTE | 2019-08-26 21:17 | PDOC ---
Attending Attestation - Resident Resident Name: DayanaraVale - ED Attending Attestation I have performed the following: I have examined & evaluated the patient, The case was reviewed & discussed with the resident, I agree w/resident's findings & plan, Exceptions are as noted - HPI HPI: 08/26/19 22:32 See resident HPI - Physicial Exam PE: 08/26/19 22:32 Agree with exam as documented by resident - Medical Decision Making 08/26/19 22:32 34F vaginal bleeding, crampy lower abdominal pain eval for preg, std, gu infection, menses and sequelae f/u labs, ua, tvus not +uti but currently being treated by her civil engineering professional DC with civil engineering professional f/u
[2019-08-26 21:56] LABS: BASO % 0.3 % (0-2.0); EOS % 1.2 % (0-4.5); HEMATOCRIT 37.9 % (32.4-45.2); HEMOGLOBIN 12.8 GM/dL (10.7-15.3); LYMPH % 32.2 % (8-40); MCH 29.6 pg (25.7-33.7); MCHC 33.8 g/dl (32.0-36.0); MEAN CELL VOLUME 87.5 fl (80-96); MEAN PLT VOLUME 8.3 fl (7.5-11.1); NEUT % 61.3 % (42.8-82.8); PLATELET COUNT 313 K/MM3 (134-434); RBC 4.34 M/mm3 (3.60-5.2); RDW 13.8 % (11.6-15.6); WHITE BLOOD COUNT 11.4 K/mm3 (4.0-10.0)
[2019-08-26 21:59] LABS: HYALINE CASTS 7 /lpf (0-8); URINE APPEARANCE TURBID; URINE BACTERIA 1.7 /hpf (NEGATIVE); URINE BILIRUBIN 1+ (NEGATIVE); URINE COLOR RED; URINE GLUCOSE (UA) NEGATIVE (NEGATIVE); URINE KETONE NEGATIVE (NEGATIVE); URINE LEUK ESTERASE 1+ (NEGATIVE); URINE NITRITE POSITIVE (NEGATIVE); URINE PROTEIN 2+ (NEGATIVE); URINE RBC 5755 /hpf (0-4); URINE UROBILINOGEN 0.2 mg/dL (0.2-1.0); URINE WBC 12 /hpf (0-5)
[2019-08-26] MEDS ORDERED: KETOROLAC TROMETHAMINE 15 MG/ML VIAL IVPUSH ONE (22:14)
[2019-08-26 22:22] LABS: BILIRUBIN,TOTAL 0.2 mg/dL (0.2-1); BLOOD UREA NITROGEN 12.6 mg/dL (7-18); CALCIUM 9.2 mg/dL (8.5-10.1); CREATININE 0.8 mg/dL (0.55-1.3); POTASSIUM 3.7 mmol/L (3.5-5.1); TOT PROT 7.7 g/dl (6.4-8.2)
[2019-08-26] MEDS ORDERED: KETOROLAC TROMETHAMINE 15 MG/ML VIAL ONE (22:32)
[2019-08-26 22:51] VITALS: BP 121/75; PULSE 73; TEMP 97
== END 2019-08-26 23:30 | disposition home or self-care (01) ==
LOC: JER 16:59
PROC: 3E033NZ Introduction of Analgesics, Hypnotics, Sedatives into Peripheral Vein, Percutaneous Approach (ICD-10-PCS; principal; 2019-08-26)
PROC: 3E0333Z Introduction of Anti-inflammatory into Peripheral Vein, Percutaneous Approach (ICD-10-PCS; 2019-08-26)
DX: N92.1 Excessive and frequent menstruation with irregular cycle (principal); Z87.440 Personal history of urinary (tract) infections; Z79.2 Long term (current) use of antibiotics; I10 Essential (primary) hypertension; E11.9 Type 2 diabetes mellitus without complications; F41.9 Anxiety disorder, unspecified; Z88.0 Allergy status to penicillin; Z88.6 Allergy status to analgesic agent
CPT/HCPCS: 36415; 76830-TC; 80053; 81003; 84703; 85025; 86850; 86900; 86901; 87086; 87491; 87591; 99284-25; J0131

== ENCOUNTER 2020-05-28 13:53 | Emergency (ER) | payer OTHER ==
[2020-05-28 13:58] VITALS: BP 114/66; PULSE 73; TEMP 98; BMI 39.0
--- OUTSIDE RECORDS SUMMARY | 2020-05-28 14:17 | XMS ---
:1985 Author Organization [facility] Support Name Relationship Address Phone UE Unavailable Unavailable Unavailable NA Unavailable NA N MELODY DAIGLE LATASHA BETANCOURT AU NA MELODY DAIGLE01 JONATHAN CLARK PARTNER [address] [facility] MELODY DAIGLE EDUARDO/ASIA, JONATHAN/ LATASHA Unavailable [address] T [address]R Unavailable MELODY DAIGLE EDUARDO, JONATHAN Unavailable [address] [place] [address] Re-disclosure Warning The records that you are about to access may contain information from federally- assisted alcohol or drug abuse programs. If such information is present, then the following federally mandated warning applies: This information has been disclosed to you from records protected by federal confidentiality rules (42 CFR part 2). The federal rules prohibit you from making any further disclosure of this information unless further disclosure is expressly permitted by the written consent of the person to whom it pertains or as otherwise permitted by 42 CFR part 2. A general authorization for the release of medical or other information is NOT sufficient for this purpose. The Federal rules restrict any use of the information to criminally investigate or prosecute any alcohol or drug abuse patient.The records that you are about to access may contain highly sensitive health information, the redisclosure of which is protected by Article 27-F of the [facility] Public Health law. If you continue you may haveaccess to information: Regarding HIV / AIDS; Provided by facilities licensed or operated by the [facility] Office of Mental Health; or Provided by the [facility] Office for People With Developmental Disabilities. If such information is present, then the following [facility] mandated warning applies: This information has been disclosed to you from confidential records which are protected by state law. State law prohibits you from making any further disclosure of this information without the specific written consent of the person to whom it pertains, or as otherwise permitted by law. Any unauthorized further disclosure in violation of state law may result in a fine or care home sentence or both. A general authorization for the release of medical or other information is NOT sufficient authorization for further disclosure. Allergies and Adverse Reactions Type Description Substance Reaction Status Data Source(s ) Drug allergy Levonorgestrel Levonorgestrel VILLALPANDO, weakness Active eC W3 ([facility]) Encounters Encounter Providers Location Date Indications Data Source(s ) Outpatient [facility] 05/11/2019 eCW3 ([facility] A28 12:00:00 AM [facility] EDT - Care) 05/11/2019 12:00:00 AM EDT A28-Est Therapy [facility] 04/26/2019 eCW3 ([facility] A28 12:00:00 AM [facility]mt EDT - Care) 20-30 Min 04/26/2019 12:00:00 AM EDT Outpatient [facility] 04/23/2019 eCW3 ([facility] A28 12:00:00 AM [facility] EDT - Care) 04/23/2019 12:00:00 AM EDT Outpatient [facility] 04/13/2019 eCW3 ([facility] A28 12:00:00 AM [facility] EDT - Care) 04/13/2019 12:00:00 AM EDT Immunizations Vaccine Date Status Description Data Source(s) Tdap 04/13/2019 completed eCW3 ([facility] 12:08:00 PM EDT Health Care) Tdap 04/13/2019 completed eCW3 ([facility] 12:08:00 PM EDT Health Care) Tdap 04/13/2019 completed eCW3 ([facility] 12:08:00 PM EDT Health Care) Tdap 04/13/2019 completed eCW3 ([facility] 12:08:00 PM EDT Health Care) Tdap 04/13/2019 completed eCW3 ([facility] 12:08:00 PM EDT Health Care) As of April 1999, a 04/13/2019 completed eCW3 ([place] 2-dose hepatitis B 12:04:00 PM EDT Health Care) schedule for adolescents (11-15 year olds) was FDA approved for Merck's Recombivax HB adult formulation. Use code 43 for the 2-dose. This code should be used for any use of standard adult formulation of hepatitis B vaccine. As of April 1999, a 04/13/2019 completed eCW3 ([facility] 2-dose hepatitis B 12:04:00 PM EDT Health Care) schedule for adolescents (11-15 year olds) was FDA approved for Merck's Recombivax HB adult formulation. Use code 43 for the 2-dose. This code should be used for any use of standard adult formulation of hepatitis B vaccine. As of April 1999, a 04/13/2019 completed eCW3 ([facility] schedule for adolescents (11-15 year olds) was FDA approved for Merck's Recombivax HB adult formulation. Use code 43 for the 2-dose. This code should be used for any use of standard adult formulation of hepatitis B vaccine. As of April 1999, a 04/13/2019 completed eCW3 ([place] [facility] 2-dose hepatitis B 12:04:00 PM [facility] Care) schedule for adolescents (11-15 year olds) was FDA approved for Merck's Recombivax HB adult formulation. Use code 43 for the 2-dose. This code should be used for any use of standard adult formulation of hepatitis B vaccine. As of April 1999, a 04/13/2019 completed eCW3 ([place] [facility] 2-dose hepatitis B 12:04:00 PM [facility]) schedule for adolescents (11-15 year olds) was FDA approved for Merck's Recombivax HB adult formulation. Use code 43 for the 2-dose. This code should be used for any use of standard adult formulation of hepatitis B vaccine. Medications Medication Brand Start Product Dose Route Administrative Pharmacy [facility] Indications Reaction Description Data Name Date Form Instructions Instructions Source(s) Fluticasone Flutic .0 active Flutica sone eCW3 Propionate asone 2020 {spra Propionate ( [facility] 50 MCG/ACT Propio 12:00: y_in_ 50 MCG/AC T [facility] [place]y 00 AM each_ Health 50 EDT nos Care) MCG/AC il} T Cepacol Cepaco .0 active Cepacol eCW 3 Fizzlers 6 l 2019 {tabl Fizzlers 6 ([facility] MG Fizzle 12:00: et_on MG [facility] rs 6 00 AM _the_ [facility] EDT [facility]) e_and _allo w_to_ disso lve_a s_nee ded} Cepacol Cepaco .0 active Cepacol eCW 3 Fizzlers 6 l 2019 {tabl Fizzlers 6 ([facility] MG Fizzle 12:00: et_on MG [facility] rs 6 00 AM _the_ Health EDT [facility]) e_and _allo w_to_ disso lve_a s_nee ded} Fluticasone Flutic .0 active Flutica sone eCW3 Propionate asone 2019 {spra Propionate ( [facility] 50 MCG/ACT Propio 12:00: y_in_ 50 MCG/AC T [facility] [place]y 00 AM each_ Health 50 EDT nostr Care) MCG/AC il} T benzonatate Tessal .0 active Tessalo n eCW3 100 MG Oral on 2019 {caps Perles 100 ( [facility] Capsule Perles 12:00: ule_a MG [facility] [Tessalon 100 MG 00 AM s_nee Health Perles] EDT ded} Care) Tessalon Perles 100 MG Cepacol Cepaco .0 active Cepacol eCW 3 Fizzlers 6 l 2019 {tabl Fizzlers 6 ([facility] MG Fizzle 12:00: et_on MG [facility] rs 6 00 AM _the_ Health EDT [facility]) e_and _allo w_to_ disso lve_a s_nee ded} Fluticasone Flutic .0 active Flutica sone eCW3 Propionate asone 2019 {spra Propionate ( [facility] 50 MCG/ACT Propio 12:00: y_in_ 50 MCG/AC T [facility] [place] 00 AM each_ Health 50 EDT nostr Care) MCG/AC il} T Fluticasone Flutic .0 active Flutica sone eCW3 Propionate asone 2019 {spra Propionate ( [facility] 50 MCG/ACT Propio 12:00: y_in_ 50 MCG/AC T [facility] [place] 00 AM each_ Health 50 EDT nostr Care) MCG/AC il} T benzonatate Tessal .0 active Tessalo n eCW3 100 MG Oral on 2019 {caps Perles 100 ( [facility] Capsule Perles 12:00: ule_a MG [facility] [Tessalon 100 MG 00 AM s_nee Health Perles] EDT ded} Care) Tessalon Perles 100 MG Meclizine Mecliz .0 active Meclizine eCW3 Hydrochlori ine 2019 {tabl HCl 25 MG ([facility] de 25 MG HCl 25 12:00: et_as [facility] Oral Tablet MG 00 AM _need Health Meclizine EDT ed} Care) HCl 25 MG Meclizine Mecliz .0 active Meclizine eCW3 Hydrochlori ine 2019 {tabl HCl 25 MG ([facility] de 25 MG HCl 25 12:00: et_as [facility] Oral Tablet MG 00 AM _need Health Meclizine EDT ed} Care) HCl 25 MG Meclizine Mecliz .0 active Meclizine eCW3 Hydrochlori ine 2019 {tabl HCl 25 MG ([facility] de 25 MG HCl 25 12:00: et_as [facility] Oral Tablet MG 00 AM _need Health Meclizine EDT ed} Care) HCl 25 MG Meclizine Mecliz .0 active Meclizine eCW3 Hydrochlori ine 2019 {tabl HCl 25 MG ([facility] de 25 MG HCl 25 12:00: et_as [facility] Oral Tablet MG 00 AM _need Health Meclizine EDT ed} Care) HCl 25 MG Meclizine Mecliz .0 active Meclizine eCW3 Hydrochlori ine 2019 {tabl HCl 25 MG ([facility] de 25 MG HCl 25 12:00: et_as [facility] Oral Tablet MG 00 AM _need Health Meclizine EDT ed} Care) HCl 25 MG Meclizine Mecliz .0 active Meclizine eCW3 Hydrochlori ine 2019 {tabl HCl 25 MG ([facility] de 25 MG HCl 25 12:00: et_as [facility] Oral Tablet MG 00 AM _need Health Meclizine EDT ed} Care) HCl 25 MG Meclizine Mecliz .0 active Meclizine eCW3 Hydrochlori ine 2019 {tabl HCl 25 MG ([facility] de 25 MG HCl 25 12:00: et_as [facility] Oral Tablet MG 00 AM _need Health Meclizine EDT ed} Care) HCl 25 MG Meclizine Mecliz .0 active Meclizine eCW3 Hydrochlori ine 2019 {tabl HCl 25 MG ([facility] de 25 MG HCl 25 12:00: et_as [facility] Oral Tablet MG 00 AM _need Health Meclizine EDT ed} Care) HCl 25 MG Meclizine Mecliz .0 active Meclizine eCW3 Hydrochlori ine 2019 {tabl HCl 25 MG ([facility] de 25 MG HCl 25 12:00: et_as [facility] Oral Tablet MG 00 AM _need Health Meclizine EDT ed} Care) HCl 25 MG Acetaminoph [facility] .0 active Acetamino phe eCW3 en 500 MG 2019 {caps n 500 MG ([facility] 12:00: ule_a [facility] 00 AM s_nee Health EDT ded} Care) Acetaminoph K .0 active Acetamino phe eCW3 en 500 MG 2019 {caps n 500 MG ([facility] 12:00: ule_a [facility] 00 AM s_nee Health EDT ded} Care) Acetaminoph K .0 active Acetamino phe eCW3 en 500 MG 2019 {caps n 500 MG ([facility] 12:00: ule_a [facility] 00 AM s_nee Health EDT ded} Care) Acetaminoph K .0 active Acetamino phe eCW3 en 500 MG 2019 {caps n 500 MG ([facility] 12:00: ule_a [facility] 00 AM s_nee Health EDT ded} Care) Acetaminoph K .0 active Acetamino phe eCW3 en 500 MG 2020 {caps n 500 MG ([facility] 12:00: ule_a [place] 00 AM s_nee Health EDT ded} Care) Acetaminoph [facility] .0 active Acetamino phe eCW3 en 500 MG 2020 {caps n 500 MG ([facility] 12:00: ule_a [place] 00 AM s_[facility] Health EDT ded} Care) Acetaminoph K .0 active Acetamino phe eCW3 en 500 MG 2020 {caps n 500 MG ([facility] 12:00: ule_a [facility] 00 AM s_[facility] Health EDT ded} Care) Acetaminoph K .0 active Acetamino phe eCW3 en 500 MG 2020 {caps n 500 MG ([facility] 12:00: ule_a [facility] 00 AM s_[facility] Health EDT ded} Care) Acetaminoph [facility] .0 active Acetamino phe eCW3 en 500 MG 2020 {caps n 500 MG ([facility] 12:00: ule_a [facility] 00 AM s_[facility] Health EDT ded} Care) Acetaminoph [facility] .0 active Acetamino phe eCW3 en 500 MG 2020 {caps n 500 MG ([facility] 12:00: ule_a [facility] 00 AM s[facility] EDT ded} Care) Loratadine Lorata .0 active Loratadi ne eCW3 10 MG Oral dine 2020 {tabl 10 MG ([facility] Tablet 10 MG 12:00: et} [facility] 00 AM Health EDT Care) Loratadine Lorata .0 active Loratadi ne eCW3 10 MG Oral dine 2020 {tabl 10 MG ([facility] Tablet 10 MG 12:00: et} [facility] 00 AM Health EDT Care) Loratadine Lorata .0 active Loratadi ne eCW3 10 MG Oral dine 2020 {tabl 10 MG ([place] Tablet 10 MG 12:00: et} [facility] 00 AM Health EDT Care) Loratadine Lorata .0 active Loratadi ne eCW3 10 MG Oral dine 2020 {tabl 10 MG ([place] Tablet 10 MG 12:00: et} [facility] 00 AM Health EDT Care) Loratadine Lorata .0 active Loratadi ne eCW3 10 MG Oral dine 2020 {tabl 10 MG ([place] Tablet 10 MG 12:00: et} [facility] AM Health EDT Care) Loratadine Lorata .0 active Loratadi ne eCW3 10 MG Oral dine 2020 {tabl 10 MG ([place] Tablet 10 MG 12:00: et} [facility] EDT Care) Loratadine Lorata .0 active Loratadi ne eCW3 10 MG Oral dine 2020 {tabl 10 MG ([place] Tablet 10 MG 12:00: et} [facility] EDT Care) Loratadine Lorata .0 active Loratadi ne eCW3 10 MG Oral dine 2020 {tabl 10 MG ([place] Tablet 10 MG 12:00: et} [facility] EDT Care) Loratadine Lorata .0 active Loratadi ne eCW3 10 MG Oral dine 2020 {tabl 10 MG ([place] Tablet 10 MG 12:00: et} [facility] EDT Care) Loratadine Lorata .0 active Loratadi ne eCW3 10 MG Oral dine 2020 {tabl 10 MG ([place] Tablet 10 MG 12:00: et} [facility] EDT Care) Loratadine Lorata .0 active Loratadi ne eCW3 10 MG Oral dine 2020 {tabl 10 MG ([place] Tablet 10 MG 12:00: et} [facility] EDT Care) Loratadine Lorata .0 active Loratadi ne eCW3 10 MG Oral dine 2020 {tabl 10 MG ([facility] Tablet 10 MG 12:00: et} [facility] EDT Care) Loratadine Lorata .0 active Loratadi ne eCW3 10 MG Oral dine 2020 {tabl 10 MG ([place] Tablet 10 MG 12:00: et} [facility] Health EDT Care) Loratadine Lorata .0 active Loratadi ne eCW3 10 MG Oral dine 2020 {tabl 10 MG ([place] Tablet 10 MG 12:00: et} [facility] Health EDT Care) Fluticasone Flutic .0 active Flutica sone eCW3 Propionate asone 2020 {spra Propionate ( [facility] 50 MCG/ACT Propio 12:00: y_in_ 50 MCG/AC T [facility] [place] 00 AM each_ Health 50 EST nostr Care) MCG/AC il} T Fluticasone Flutic .0 active Flutica sone eCW3 Propionate asone 2020 {spra Propionate ( [facility] 50 MCG/ACT Propio 12:00: y_in_ 50 MCG/AC T [facility] [place] 00 AM each_ Health 50 EST nostr Care) MCG/AC il} T Fluticasone Flutic .0 active Flutica sone eCW3 Propionate asone 2020 {spra Propionate ( [facility] 50 MCG/ACT Propio 12:00: y_in_ 50 MCG/AC T [facility] [place] 00 AM each_ Health 50 EST nostr Care) MCG/AC il} T Fluticasone Flutic .0 active Flutica sone eCW3 Propionate asone 2020 {spra Propionate ( [facility] 50 MCG/ACT Propio 12:00: y_in_ 50 MCG/AC T [facility] [place] 00 AM each_ Health 50 EST nostr Care) MCG/AC il} T Fluticasone Flutic .0 active Flutica sone eCW3 Propionate asone 2020 {spra Propionate ( [facility] 50 MCG/ACT Propio 12:00: y_in_ 50 MCG/AC T [facility] [place] 00 AM each_ Health 50 EST nostr Care) MCG/AC il} T Fluticasone Flutic 0 active Flutica sone eCW3 Propionate asone 2020 {spra Propionate ( [facility] 50 MCG/ACT Propio 12:00: y_in_ 50 MCG/AC T [facility] [place] 00 AM each_ Health 50 EST nostr Care) MCG/AC il} T Fluticasone Flutic .0 active Flutica sone eCW3 Propionate asone 2020 {spra Propionate ( [facility] 50 MCG/ACT Propio 12:00: y_in_ 50 MCG/AC T [facility] [place] 00 AM each_ Health 50 EST nostr Care) MCG/AC il} T Fluticasone Flutic .0 active Flutica sone eCW3 Propionate asone 2020 {spra Propionate ( [facility] 50 MCG/ACT Propio 12:00: y_in_ 50 MCG/AC T [facility] [place] 00 AM each_ Health 50 EST nostr Care) MCG/AC il} T Fluticasone Flutic active Flutica sone eCW3 Propionate asone 2020 {spra Propionate ( [facility] 50 MCG/ACT Propio 12:00: y_in_ 50 MCG/AC T [facility] [place] 00 AM each_ Health 50 EST nostr Care) MCG/AC il} T Fluticasone Flutic 0 active Flutica sone eCW3 Propionate asone 2020 {spra Propionate ( [facility] 50 MCG/ACT Propio 12:00: y_in_ 50 MCG/AC T [facility] [place] 00 AM each_ Health 50 EST nostr Care) MCG/AC il} T Fluticasone Flutic 0 active Flutica sone eCW3 Propionate asone 2020 {spra Propionate ( [facility] 50 MCG/ACT Propio 12:00: y_in_ 50 MCG/AC T [facility] [place] 00 AM each_ Health 50 EST nostr Care) MCG/AC il} T Fluticasone Flutic active Flutica sone eCW3 Propionate asone 2020 {spra Propionate ( [facility] 50 MCG/ACT Propio 12:00: y_in_ 50 MCG/AC T [facility] [place] 00 AM each_ Health 50 EST nostr Care) MCG/AC il} T Fluticasone Flutic active Flutica sone eCW3 Propionate asone 2020 {spra Propionate ( [facility] 50 MCG/ACT Propio 12:00: y_in_ 50 MCG/AC T [facility] [place] 00 AM each_ Health 50 EST nostr Care) MCG/AC il} T Fluticasone Flutic .0 active Flutica sone eCW3 Propionate asone 2020 {spra Propionate ( [facility] 50 MCG/ACT Propio 12:00: y_in_ 50 MCG/AC T [facility] [place] 00 AM each_ Health 50 EST nostr Care) MCG/AC il} T Fluticasone Flutic .0 active Flutica sone eCW3 Propionate asone 2020 {spra Propionate ( [facility] 50 MCG/ACT Propio 12:00: y_in_ 50 MCG/AC T [facility] [place] 00 AM each_ Health 50 EST nostr Care) MCG/AC il} T Fluticasone Flutic active Flutica sone eCW3 Propionate asone 2020 {spra Propionate ( [facility] 50 MCG/ACT Propio 12:00: y_in_ 50 MCG/AC T [facility] [place] 00 AM each_ Health 50 EST nostr Care) MCG/AC il} T Fluticasone Flutic active Flutica sone eCW3 Propionate asone 2020 {spra Propionate ( [facility] 50 MCG/ACT Propio 12:00: y_in_ 50 MCG/AC T [facility] [place] 00 AM each_ Health 50 EST nostr Care) MCG/AC il} T Fluticasone Flutic active Flutica sone eCW3 Propionate asone 2020 {spra Propionate ( [place] 50 MCG/ACT Propio 12:00: y_in_ 50 MCG/AC T [facility] [place] 00 AM each_ Health 50 EST nostr Care) MCG/AC il} T Fluticasone Flutic active Flutica sone eCW3 Propionate asone 2020 {spra Propionate ( [place] 50 MCG/ACT Propio 12:00: y_in_ 50 MCG/AC T [facility] [place] 00 AM each_ Health 50 EST nostr Care) MCG/AC il} T Fluticasone Flutic active Flutica sone eCW3 Propionate asone 2020 {spra Propionate ( [facility] 50 MCG/ACT Propio 12:00: y_in_ 50 MCG/AC T [facility] [place] 00 AM each_ Health 50 EST nostr Care) MCG/AC il} T Clindamycin Clinda 0 active Clindam ycin eCW3 300 MG Oral mycin 2019 {caps HCl 300 MG ([place] Capsule HCl 12:00: ule} [facility] Clindamycin 300 MG 00 AM Healt h HCl 300 MG EDT Care) Insurance Providers Payer name Policy type Policy ID Covered Covered constitution party's Policy P chandni / Coverage constitution party ID relationship to Gil Inf ormation type gil [facility] [id number] SP [id number] NON CAP [facility] W [id number] 01 [id number] [facility] [id number] S [id number] [place] FFS [id number] S [id number] Medicaid Dental [id number] S [id number] Dentaquest MKD [employer] Vision [id number] S [id number] MKD Medicaid [id number] S [id number] Regular Clinic Visit (DO NOT USE) [id number] S [id number] [place] Care Auth PCP Not MVNHC/YHC/GHC Problems, Conditions, and Diagnoses Code Display Name Description Problem Type Effective Data Dates Source(s) N91.2 Amenorrhea Amenorrhea Problem 01/10/2020 eCW3 ([place] 12:00:00 AM [facility] EDT Care) N92.6 Menstrual period Menstrual period Problem 01/10/2020 eC W3 ([place] late late 12:00:00 AM [facility] EDT Care) G43.009 Migraine without Migraine without Problem 12/31/2019 eC W3 ([place] aura and without aura and without 12:00:00 AM [facility] status migrainosus, status migrainosus, EDT Care) not intractable not intractable J30.1 Seasonal allergic Seasonal allergic Problem 11/17/2019 eCW3 ([place] rhinitis due to rhinitis due to 12:00:00 AM [facility] pollen pollen EDT Care) J30.1 Seasonal allergic Seasonal allergic Problem 11/17/2019 eCW3 ([place] rhinitis due to rhinitis due to 12:00:00 AM [facility] pollen pollen EDT Care) R73.03 Prediabetes Prediabetes Problem 08/13/2019 eCW3 ([facility] 12:00:00 AM [facility] EST Care) R73.03 Prediabetes Prediabetes Problem 08/13/2019 eCW3 ([place] 12:00:00 AM [facility] EST Care) R73.03 Prediabetes Prediabetes Problem 08/13/2019 eCW3 ([place] 12:00:00 AM [facility] EST Care) R73.03 Prediabetes Prediabetes Problem 08/13/2019 eCW3 ([place] 12:00:00 AM [facility]) N91.5 Oligomenorrhea Oligomenorrhea Problem 04/23/2019 eCW3 ( [facility] 12:00:00 AM [facility] EDT Care) N91.5 Oligomenorrhea Oligomenorrhea Problem 04/23/2019 eCW3 ( [facility] 12:00:00 AM [facility] EDT Care) N91.5 Oligomenorrhea Oligomenorrhea Problem 04/23/2019 eCW3 ( [facility] 12:00:00 AM [facility] EDT Care) N91.5 Oligomenorrhea Oligomenorrhea Problem 04/23/2019 eCW3 ( [facility] 12:00:00 AM [facility] EDT Care) 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 Problem 04/13/2019 eCW3 ([facility] 12:00:00 AM [facility]) E66.9 Obesity (BMI Obesity (BMI Problem 04/13/2019 eCW3 ([facility] 30-39.9) 30-39.9) 12:00:00 AM [facility] EDT Care) 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 Problem 04/13/2019 eCW3 ([facility] 12:00:00 AM [facility] ED Care) E66.9 Obesity (BMI Obesity (BMI Problem 04/13/2019 eCW3 ([facility] 30-39.9) 30-39.9) 12:00:00 [facility] ED Care) E66.9 Obesity (BMI Obesity (BMI Problem 04/13/2019 eCW3 ([facility] 30-39.9) 30-39.9) 12:00:00 AM [facility] EDT Care) 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 Problem 04/13/2019 eCW3 ([facility] 12:00:00 AM [facility] ED Care) E66.9 Obesity (BMI Obesity (BMI Problem 04/13/2019 eCW3 ([facility] 30-39.9) 30-39.9) 12:00:00 [facility] ED Care) Social History Code Duration Value Status Description Data Source(s ) Smoking 05/17/2020 12:00:00 Never Smoker completed Never Smoker e CW3 ([facility]) Smoking 04/03/2020 12:00:00 Never Smoker completed Never Smoker e CW3 ([facility]) Smoking 04/03/2020 12:00:00 Never Smoker completed Never Smoker e CW3 ([facility]) Smoking 03/24/2020 12:00:00 Never Smoker completed Never Smoker e CW3 ([facility]) Smoking 02/27/2020 12:00:00 Never Smoker completed Never Smoker e CW3 ([facility]) Smoking 01/16/2020 12:00:00 Never Smoker completed Never Smoker e CW3 ([facility]) Smoking 01/16/2020 12:00:00 Never Smoker completed Never Smoker e CW3 ([facility]) Smoking 01/16/2020 12:00:00 Never Smoker completed Never Smoker e CW3 ([facility]) Smoking 01/16/2020 12:00:00 Never Smoker completed Never Smoker e CW3 ([facility]) Smoking 01/10/2020 12:00:00 Never Smoker completed Never Smoker e CW3 ([facility]) Smoking 01/10/2020 12:00:00 Never Smoker completed Never Smoker e CW3 ([facility]) Smoking 12/11/2019 12:00:00 Never Smoker completed Never Smoker e CW3 ([facility]) Smoking 11/21/2019 12:00:00 Never Smoker completed Never Smoker e CW3 ([facility]) Smoking 11/21/2019 12:00:00 Never Smoker completed Never Smoker e CW3 ([facility]) Smoking 09/24/2019 12:00:00 Never Smoker completed Never Smoker e CW3 ([facility]) Smoking 09/24/2019 12:00:00 Never Smoker completed Never Smoker e CW3 ([facility]) Smoking 09/24/2019 12:00:00 Never Smoker completed Never Smoker e CW3 ([facility]) Smoking 09/24/2019 12:00:00 Never Smoker completed Never Smoker e CW3 ([facility]) Smoking 09/24/2019 12:00:00 Never Smoker completed Never Smoker e CW3 ([facility]) Smoking 09/24/2019 12:00:00 Never Smoker completed Never Smoker e CW3 ([facility]) Smoking 08/13/2019 12:00:00 Never Smoker completed Never Smoker e CW3 ([facility]) Smoking 05/11/2019 12:00:00 Never Smoker completed Never Smoker e CW3 ([facility]) Smoking 05/11/2019 12:00:00 Never Smoker completed Never Smoker e CW3 ([facility]) Vital Signs ID Date Data Source UNK Name Value Range Interpretation Code Description Data Source(s) Diastolic blood 77 mm[Hg] 77 mm[Hg] eCW3 ([facility]) Systolic blood 128 mm[Hg] 128 mm[Hg] eCW3 ([facility]) Body temperature 98.0 [degF] 98.0 [degF] eCW3 ( [facility]) Body mass index 38.37 kg/m2 38.37 kg/m2 eCW3 ([facility] (BMI) [Ratio] [facility]) Body weight 190 [lb_av] 190 [lb_av] eCW3 ([facility]) Body height 59 [in_i] 59 [in_i] eCW3 ([facility]) Diastolic blood 79 mm[Hg] 79 mm[Hg] eCW3 ([facility]) Systolic blood 117 mm[Hg] 117 mm[Hg] eCW3 ([facility]) Body temperature 98.6 [degF] 98.6 [degF] eCW3 ( [facility]) Heart rate 20 /min 20 /min eCW3 ([facility]) Body mass index 37.56 kg/m2 37.56 kg/m2 eCW3 ([facility] (BMI) [Ratio] [facility]) Body weight 186 [lb_av] 186 [lb_av] eCW3 ([facility]) Body height 59.0 [in_i] 59.0 [in_i] eCW3 ([facility]) Diastolic blood 68 mm[Hg] 68 mm[Hg] eCW3 ([facility]) Systolic blood 106 mm[Hg] 106 mm[Hg] eCW3 ([facility]) Body temperature 98.7 [degF] 98.7 [degF] eCW3 ( [facility]) Heart rate 18 /min 18 /min eCW3 ([facility]) Body mass index 37.40 kg/m2 37.40 kg/m2 eCW3 ([facility] udson (BMI) [Ratio] [facility]) Body weight 185.2 185.2 [lb_av] eCW3 ([place] [lb_av] [facility]) Body height 59.0 [in_i] 59.0 [in_i] eCW3 ([facility]) Patient Treatment Plan of Care Planned Activity Planned Date Details Description Data Source (s) Loratadine 10 MG Oral 11/17/2019 12:00:00 eCW3 ([facility] Tablet [facility]) Loratadine 10 MG Oral 11/17/2019 12:00:00 eCW3 ([facility] Tablet [facility]) Fluticasone Propionate 09/24/2019 12:00:00 eCW3 ([facility] 50 MCG/ACT [facility]) Fluticasone Propionate 09/24/2019 12:00:00 eCW3 ([facility] 50 MCG/ACT [facility]) Fluticasone Propionate 09/24/2019 12:00:00 eCW3 ([facility] 50 MCG/ACT [facility]) Fluticasone Propionate 09/24/2019 12:00:00 eCW3 ([facility] 50 MCG/ACT [facility]) Clindamycin 300 MG Oral 05/11/2019 12:00:00 eCW3 ([facility] Capsule [facility])
[2020-05-28] MEDS ORDERED: BUPIVACAINE HCL 0.5% 250 MG/50 ML VIAL IJ ONE (14:30)
[2020-05-28] MEDS ORDERED: LIDOCAINE HCL 2% (50ML VIAL) SQ ONE (14:30)
[2020-05-28] MEDS ORDERED: BUPIVACAINE HCL 50 ML ONE (14:31)
--- NOTE | 2020-05-28 14:49 | PDOC ---
History of Present Illness - General Chief Complaint: Toothache Stated Complaint: TOOTHACHE Time Seen by Provider: 05/28/20 13:59 History Source: Patient Exam Limitations: No Limitations - History of Present Illness Initial Comments: 05/28/20 14:31 HISTORY OF PRESENT ILLNESS: 34-year-old woman denies medical history presents emergency department for evaluation of toothache to the left lower jaw. Patient states she was seen and evaluated by her dentist who gave her antibiotics and set up an appointment for next week. Patient reports the pain has become too much. No recent travel or sick contacts. PAST MEDICAL HISTORY: Denies past medical history SURGICAL HISTORY: Denies ALLERGIES: Aspirin, Motrin, penicillin REVIEW OF SYSTEMS General/Constitutional: Denies fever or chills. Denies weakness, weight change. HEENT: See HPI Cardiovascular: Denies chest pain or shortness of breath. Respiratory: Denies cough, wheezing, or hemoptysis. Gastrointestinal: Denies nausea, vomiting, diarrhea or constipation. Denies rectal bleeding. Genitourinary: Denies dysuria, frequency, or change in urination. Musculoskeletal: Denies joint or muscle swelling or pain. Denies neck or back pain. Skin and breasts: Denies rash or easy bruising. Neurologic: Denies headache, vertigo, loss of consciousness, or loss of sensation. Psychiatric: Denies depression or anxiety. Endocrine: Denies increased thirst. Denies abnormal weight change. Hematologic/Lymphatic: Denies anemia, easy bleeding, or history of blood clots. Allergic/Immunologic: Denies hives or skin allergy. Denies latex allergy. PHYSICAL EXAM General Appearance: Well-appearing, appropriately dressed. No apparent distress, no intoxication. HEENT: EOMI, PERRLA, normal ENT inspection, normal voice, TMs normal, pharynx no rmal. No conjunctival pallor. No photophobia, scleral icterus. Multiple dental caries presents to the left lower jaw. Obvious dental carry to tooth #19 with pain to palpation along the lingual gingiva of tooth #19. Tooth #12 is missing. Facial swelling present over the left mandible to the same area as tooth #19. Neck: Supple. Trachea midline. No tenderness, rigidity, carotid bruit, stridor, lymphadenopathy, or thyromegaly. Respiratory/Chest: Lungs CTAB. No shortness of breath, chest tenderness, respiratory distress, accessory muscle use. No crackles, rales, rhonchi, stridor, wheezing, dullness Cardiovascular: RRR. S1, S2. No JVD, murmur, bradycardia, tachycardia. Past History - Medical History Allergies/Adverse Reactions: Allergies Allergy/AdvReac Type Severity Reaction Status Date / Time aspirin Allergy Verified 05/28/20 13:58 ibuprofen [From Motrin] Allergy Verified 05/28/20 13:58 Penicillins Allergy Verified 05/28/20 13:58 Home Medications: Ambulatory Orders Atenolol [Tenormin -] 50 mg PO DAILY 08/20/18 Hydrochlorothiazide [Hctz -] 12.5 mg PO DAILY 08/20/18 COPD: No Diabetes: Yes HTN: Yes Psychiatric Problems: Yes (anxeity) - Reproductive History Is Patient Now?: No (#): 1 Para: 1 Cervical CA: No Dysfunctional Uterine Bleeding: No Ectopic : No Endometrial CA: No Polycystic Ovaries: No Tubal Ligation: No - Immunization History Td Vaccination: Yes TDAP Vaccination: Yes Immunization Up to Date: Yes - Psycho-Social/Smoking History Smoking History: Never smoked Have you smoked in the past 12 months: No *Physical Exam - Vital Signs Last Vital Signs Temp Pulse Resp BP Pulse Ox 98 F 73 18 114/66 99 05/28/20 13:54 05/28/20 13:54 05/28/20 13:54 05/28/20 13:54 05/28/20 13:54 Medical Decision Making - Medical Decision Making 05/28/20 14:34 A/P: 34-year-old woman with toothache This patient is already receiving antibiotics and has follow-up appointment with her dentist I will give patient an infusion of bupivacaine and lidocaine to help control her pain until she is evaluated by the dentist. Discharge home Portions of this note have been documented using voice recognition software. As a result, errors may occur in the software configuration analyst process. Effort has been made to correct all grammatical and software configuration analyst error, but some may have been missed which may produce sporadic inaccurate software configuration analyst or nonsensical phrases. Discharge - Discharge Information Problems reviewed: Yes Clinical Impression/Diagnosis: Dental caries Condition: Stable Disposition: HOME - Admission No - Follow up/Referral Referrals: Regina Paz DO [Primary Care Provider] - - Patient Discharge Instructions Additional Instructions: Rest, drink lots of fluids: Teas, water, soups Saltwater gargles/ keep mouth clean and rinse after each meal May use wet teabag for pain relief to area Avoid hard chewing foods, stick to ice cream, Jell-O, yogurt etc. Tylenol for fever and pain Complete all medication as prescribed Followup with private physician in one to 2 days as needed Return to emergency department for worsened symptoms, fevers, swelling to face or worsened pain Sabrinaarheidyos lquidos: ts, agua, sopas Grgaras de agua salada/ mantener la boca limpia y enjuagar despus de cada comida Puede usar bolsita de t hmeda para aliviar el dolor en el shannan Evite masticar alimentos duros, apguese a helado, gelatina, yogur, etc. Tylenol para la fiebre y el dolor Complete todos los medicamentos segn lo prescrito Seguimiento con el mdico privado en alondra a 2 means segn sea necesario Volver al departamento de emergencias para empeorar los sntomas, fiebres, hinchazn en la lenin o empeoramiento del dolor - Post Discharge Activity
== END 2020-05-28 14:54 | disposition home or self-care (01) ==
LOC: JERFT 13:53
DX: K02.9 Dental caries, unspecified (principal)
CPT/HCPCS: 99283-25

== ENCOUNTER 2020-09-02 20:45 | Emergency (ER) | payer OTHER ==
[2020-09-02 20:50] VITALS: BP 144/76; PULSE 98; TEMP 98.2; BMI 37.5
[2020-09-02] MEDS ORDERED: ACETAMINOPHEN 325 MG TABLET (FP) PO ONE (21:42)
[2020-09-02 22:15] LABS: EPI CELLS >36 /uL (0-25.1); HCG,QUALITATIVE URINE Negative; HYALINE CASTS 4 /uL (0-3.1); PH,URINE 6.5 (5.0-8.0); URINE APPEARANCE CLOUDY; URINE BACTERIA 2855 /uL (0-1359); URINE BILIRUBIN NEGATIVE (NEGATIVE); URINE COLOR YELLOW; URINE GLUCOSE (UA) 1+ (NEGATIVE); URINE KETONE TRACE (NEGATIVE); URINE LEUK ESTERASE 1+ (NEGATIVE); URINE NITRITE NEGATIVE (NEGATIVE); URINE PROTEIN TRACE (NEGATIVE); URINE RBC 20 /uL (0-23.9); URINE UROBILINOGEN 0.2 mg/dL (0.2-1.0); URINE WBC 98 /uL (0-25.8)
[2020-09-02] MEDS ORDERED: ACETAMINOPHEN 325 MG TABLET (FP) ONE (23:13)
== END 2020-09-03 02:00 | disposition home or self-care (01) ==
LOC: JER 20:45
DX: N93.8 Other specified abnormal uterine and vaginal bleeding (principal); R10.2 Pelvic and perineal pain
CPT/HCPCS: 76830-TC; 81003; 84703; 87086; 99284-25

== ENCOUNTER 2020-09-19 18:10 | Emergency (ER) | payer OTHER ==
[2020-09-19 18:45] VITALS: BMI 37.0
[2020-09-19 21:14] LABS: BASO % 0.6 % (0-2.0); EOS % 0.6 % (0-4.5); HEMATOCRIT 39.6 % (32.4-45.2); HEMOGLOBIN 13.3 GM/dL (10.7-15.3); LYMPH % 37.9 % (8-40); MCH 28.6 pg (25.7-33.7); MCHC 33.7 g/dl (32.0-36.0); MEAN CELL VOLUME 85.1 fl (80-96); MEAN PLT VOLUME 8.5 fl (7.5-11.1); MONO % 7.4 % (3.8-10.2); NEUT % 53.5 % (42.8-82.8); PLATELET COUNT 259 K/MM3 (134-434); RBC 4.65 M/mm3 (3.60-5.2); RDW 13.9 % (11.6-15.6); WHITE BLOOD COUNT 5.1 K/mm3 (4.0-10.0)
[2020-09-19 22:00] LABS: EPI CELLS >36 /uL (0-25.1); HYALINE CASTS 1 /uL (0-3.1); PH,URINE 6.5 (5.0-8.0); URINE APPEARANCE CLOUDY; URINE BACTERIA 914 /uL (0-1359); URINE BILIRUBIN NEGATIVE (NEGATIVE); URINE COLOR YELLOW; URINE GLUCOSE (UA) NEGATIVE (NEGATIVE); URINE KETONE NEGATIVE (NEGATIVE); URINE LEUK ESTERASE TRACE (NEGATIVE); URINE NITRITE NEGATIVE (NEGATIVE); URINE PROTEIN NEGATIVE (NEGATIVE); URINE RBC 19 /uL (0-23.9); URINE UROBILINOGEN 0.2 mg/dL (0.2-1.0); URINE WBC 22 /uL (0-25.8)
[2020-09-19 22:59] VITALS: BP 124/76; PULSE 83; TEMP 98.6
== END 2020-09-19 23:04 | disposition home or self-care (01) ==
LOC: JER 18:10
DX: R11.10 Vomiting, unspecified (principal); N30.00 Acute cystitis without hematuria; N83.202 Unspecified ovarian cyst, left side
CPT/HCPCS: 36415; 76817-TC; 81003; 84702; 85025; 86850; 86900; 86901; 87086; 99284-25

== ENCOUNTER 2020-12-17 21:30 | Emergency (ER) | payer OTHER ==
[2020-12-17 21:42] VITALS: TEMP 98.3; BMI 36.1
[2020-12-17] MEDS ORDERED: ALBUTEROL SO4 2.5/IPRATROPIUM 0.5 INH SOL 3 ML VIAL.NEB. NEB ONE ×2 (21:53→22:02)
[2020-12-17] MEDS ORDERED: ALBUTEROL SO4 0.083% IH SOL 2.5 MG/3 ML VIAL.NEB. NEB ONE ×2 (21:53→22:02)
[2020-12-17 22:27] LABS: BASO % 0.8 % (0-2.0); EOS % 1.7 % (0-4.5); HEMATOCRIT 38.7 % (32.4-45.2); HEMOGLOBIN 13.4 GM/dL (10.7-15.3); LYMPH % 26.4 % (8-40); MCH 30.2 pg (25.7-33.7); MCHC 34.7 g/dl (32.0-36.0); MEAN PLT VOLUME 8.5 fl (7.5-11.1); MONO % 7.3 % (3.8-10.2); NEUT % 63.8 % (42.8-82.8); PLATELET COUNT 304 K/MM3 (134-434); RBC 4.45 M/mm3 (3.60-5.2); RDW 13.5 % (11.6-15.6); WHITE BLOOD COUNT 8.6 K/mm3 (4.0-10.0)
[2020-12-17 22:40] LABS: ALBUMIN 3.9 g/dl (3.4-5.0); BLOOD UREA NITROGEN 10.1 mg/dL (7-18); CALCIUM 9.2 mg/dL (8.5-10.1)
[2020-12-17 22:44] LABS: CREATININE 0.7 mg/dL (0.55-1.3)
[2020-12-17 22:45] LABS: BILIRUBIN,TOTAL 0.2 mg/dL (0.2-1)
[2020-12-18] MEDS ORDERED: PSEUDOEPHEDRINE HCL 60 MG TABLET PO ONE (01:42)
[2020-12-18] MEDS ORDERED: PSEUDOEPHEDRINE HCL 60 MG TABLET ONE (01:53)
[2020-12-18 02:10] VITALS: BP 145/80; PULSE 78
[2020-12-19 02:07] LABS: SARS-CoV-2 NAA Not Detected (Not Detected)
== END 2020-12-18 02:00 | disposition home or self-care (01) ==
LOC: JER 21:30
PROC: 3E0F7GC Introduction of Other Therapeutic Substance into Respiratory Tract, Via Natural or Artificial Opening (ICD-10-PCS; principal; 2020-12-17)
DX: R07.89 Other chest pain (principal); R09.81 Nasal congestion
CPT/HCPCS: 36415; 71045-TC-FY; 71275-TC; 80053; 84703; 85025; 85379; 87880; 93005; 93010; 99285-25; C9803; U0003; U0005

== ENCOUNTER 2021-06-25 16:52 | Observation (INO) | payer OTHER ==
[2021-06-25 17:45] VITALS: BMI 39.4
[2021-06-25] MEDS ORDERED: ACETAMINOPHEN 1000 MG/100 ML VIAL IVPB ONE (18:53)
[2021-06-25] MEDS ORDERED: ACETAMINOPHEN INJECTION 100 ML IVPB ONE (19:01)
[2021-06-25 19:12] LABS: URINE APPEARANCE CLEAR; URINE BILIRUBIN NEGATIVE (NEGATIVE); URINE COLOR YELLOW; URINE GLUCOSE (UA) NEGATIVE (NEGATIVE); URINE KETONE NEGATIVE (NEGATIVE); URINE LEUK ESTERASE NEGATIVE (NEGATIVE); URINE NITRITE NEGATIVE (NEGATIVE); URINE PROTEIN NEGATIVE (NEGATIVE); URINE UROBILINOGEN 0.2 mg/dL (0.2-1.0)
[2021-06-25] MEDS ORDERED: METOCLOPRAMIDE HCL INJECTION 10 MG/2 ML VIAL IVPUSH ONE (19:24)
[2021-06-25 19:27] LABS: VENOUS BASE EXCESS 1.3 mmol/L (-2-2); VENOUS O2 SATURATION 33.3 % (70-80); VENOUS PCO2 47.3 mmHg (38-52); VENOUS PH 7.376 (7.310-7.410)
[2021-06-25 19:28] LABS: BASO % 0.9 % (0-2.0); EOS % 0.7 % (0-4.5); HEMATOCRIT 38.6 % (32.4-45.2); HEMOGLOBIN 13.1 GM/dL (10.7-15.3); LYMPH % 23.6 % (8-40); MCH 29.8 pg (25.7-33.7); MCHC 34.1 g/dl (32.0-36.0); MEAN CELL VOLUME 87.5 fl (80-96); MONO % 5.5 % (3.8-10.2); NEUT % 69.3 % (42.8-82.8); PLATELET COUNT 339 10^3/uL (134-434); RBC 4.41 M/mm3 (3.60-5.2); WHITE BLOOD COUNT 10.8 K/mm3 (4.0-10.0)
[2021-06-25 19:48] LABS: CHLORIDE 103 mmol/L (98-107); SODIUM 138 mmol/L (136-145)
[2021-06-25 19:50] LABS: ALBUMIN 3.9 g/dl (3.4-5.0); ANION GAP 7 MMOL/L (8-16); CALCIUM 9.5 mg/dL (8.5-10.1); CO2 28 mmol/L (21-32)
[2021-06-25 19:51] LABS: BLOOD UREA NITROGEN 11.8 mg/dL (7-18); GLUCOSE,RANDOM 93 mg/dL (74-106); MAGNESIUM 2.3 mg/dL (1.8-2.4)
[2021-06-25 19:53] LABS: SGOT/AST 10 U/L (15-37); SGPT/ALT 23 U/L (13-61)
[2021-06-25 19:54] LABS: CREATININE 0.7 mg/dL (0.55-1.3); PHOSPHOROUS 3.5 mg/dL (2.5-4.9)
[2021-06-25 19:55] LABS: BILIRUBIN,TOTAL 0.3 mg/dL (0.2-1); TOT PROT 7.9 g/dl (6.4-8.2)
[2021-06-25 19:56] LABS: ALK PHOS 86 U/L (45-117)
[2021-06-25] MEDS ORDERED: METOCLOPRAMIDE HCL INJECTION 10 MG/2 ML VIAL ONE (20:17)
[2021-06-26] MEDS ORDERED: HEPARIN NA (PORCINE) 5,000 UNITS/ML 1ML VIAL SQ SCH (06:00)
[2021-06-26] MEDS ORDERED: HEPARIN NA (PORCINE) 5,000 UNITS/ML 1ML VIAL ONE (06:01)
[2021-06-26] MEDS ORDERED: LISINOPRIL 5 MG TABLET ONE (08:59)
[2021-06-26] MEDS: INSULIN SLIDING SCALE (NOVOLOG) 1 VIAL SQ SCH ×2 (09:09→12:36)
[2021-06-26] MEDS ORDERED: LISINOPRIL 5 MG TABLET PO SCH (10:00)
[2021-06-26 12:57] VITALS: BP 108/67; PULSE 84; TEMP 97.3
== END 2021-06-26 14:06 | disposition home or self-care (01) ==
LOC: JER 16:52 → JERBED 20:21 → UNDOADMOB 20:21 → INTOOBSV 06-26 01:11 → OBSVTOIN 06-26 01:11 → JERBED 06-26 07:40
PROVIDERS: ATTEND Nurse Practitioner Acute Care
PROC: 3E033NZ Introduction of Analgesics, Hypnotics, Sedatives into Peripheral Vein, Percutaneous Approach (ICD-10-PCS; principal; 2021-06-26)
PROC: 3E033GC Introduction of Other Therapeutic Substance into Peripheral Vein, Percutaneous Approach (ICD-10-PCS; 2021-06-26)
DX: H53.8 Other visual disturbances (principal); R20.0 Anesthesia of skin; E11.9 Type 2 diabetes mellitus without complications; F41.9 Anxiety disorder, unspecified; F41.0 Panic disorder [episodic paroxysmal anxiety]; F18.20 Inhalant dependence, uncomplicated; Z88.0 Allergy status to penicillin; Z88.8 Allergy status to other drugs, medicaments and biological substances
CPT/HCPCS: 36415; 70450-TC; 70553-TC; 71045-TC-FY; 80053; 81003; 82010; 82550; 82803; 82962; 83036; 83735; 84100; 84484; 84703; 85025; 87086; 93005; 93010; 96374; 96375; 99285-25; A9579; C9803; G0378; J0131; U0003; U0005

== ENCOUNTER 2021-08-15 09:33 | Emergency (ER) | payer OTHER ==
[2021-08-15 10:15] VITALS: BP 154/90; PULSE 59; TEMP 97.9; BMI 38.3
[2021-08-15] MEDS ORDERED: ACETAMINOPHEN 500 MG TABLET (FP) PO ONE (11:18)
[2021-08-15] MEDS ORDERED: ACETAMINOPHEN 500 MG TABLET (FP) ONE (11:48)
== END 2021-08-15 14:07 | disposition home or self-care (01) ==
LOC: JERFT 09:33
DX: G44.319 Acute post-traumatic headache, not intractable (principal); W01.0XXA Fall on same level from slipping, tripping and stumbling without subsequent striking against object, initial encounter
CPT/HCPCS: 70450-TC; 99284-25

== ENCOUNTER 2021-10-31 13:12 | Emergency (ER) | payer OTHER ==
[2021-10-31 13:31] VITALS: BP 108/72; PULSE 78; TEMP 97.8; BMI 38.3
[2021-10-31 15:31] LABS: HCG,QUALITATIVE URINE Negative
[2021-10-31 15:32] LABS: EPI CELLS 7 /uL (0-25.1); HYALINE CASTS 0 /uL (0-3.1); URINE APPEARANCE CLEAR; URINE BACTERIA 378 /uL (0-1359); URINE BILIRUBIN NEGATIVE (NEGATIVE); URINE COLOR YELLOW; URINE GLUCOSE (UA) NEGATIVE (NEGATIVE); URINE KETONE NEGATIVE (NEGATIVE); URINE LEUK ESTERASE NEGATIVE (NEGATIVE); URINE NITRITE NEGATIVE (NEGATIVE); URINE PROTEIN NEGATIVE (NEGATIVE); URINE RBC 11 /uL (0-23.9); URINE UROBILINOGEN 0.2 mg/dL (0.2-1.0); URINE WBC 7 /uL (0-25.8)
== END 2021-10-31 17:05 | disposition home or self-care (01) ==
LOC: JER 13:12
DX: N83.202 Unspecified ovarian cyst, left side (principal)
CPT/HCPCS: 76830-TC; 81003; 84703; 87077; 87086; 87186; 99284-25

== ENCOUNTER 2022-04-21 00:30 | Emergency (ER) | payer OTHER ==
[2022-04-21 00:53] VITALS: BP 137/84; PULSE 87; RESP 18; TEMP 97.7; BMI 38.5
[2022-04-21] MEDS ORDERED: LACTATED RINGERS SOLUTION 1000 ML INFUS.BAG IV ONE (01:31)
[2022-04-21] MEDS ORDERED: ACETAMINOPHEN 1000 MG/100 ML BAG IVPB ONE (01:31)
[2022-04-21] MEDS ORDERED: ACETAMINOPHEN INJECTION 100 ML IVPB ONE (02:20)
[2022-04-21 02:57] LABS: BASO % 0.6 % (0-2.0); EOS % 0.4 % (0-4.5); HEMATOCRIT 38.4 % (32.4-45.2); HEMOGLOBIN 13.1 GM/dL (10.7-15.3); MEAN CELL VOLUME 88.1 fl (80-96); MEAN PLT VOLUME 8.5 fl (7.5-11.1); MONO % 5.5 % (3.8-10.2); NEUT % 71.5 % (42.8-82.8); PLATELET COUNT 285 10^3/uL (134-434); RBC 4.36 M/mm3 (3.60-5.2); RDW 13.2 % (11.6-15.6); WHITE BLOOD COUNT 8.3 K/mm3 (4.0-10.0)
[2022-04-21 03:14] LABS: ALBUMIN 3.9 g/dl (3.4-5.0); CALCIUM 9.6 mg/dL (8.5-10.1)
[2022-04-21 03:15] LABS: BLOOD UREA NITROGEN 10.4 mg/dL (7-18)
[2022-04-21 03:17] LABS: CREATININE 0.6 mg/dL (0.55-1.3)
[2022-04-21 03:19] LABS: BILIRUBIN,TOTAL 0.3 mg/dL (0.2-1); TOT PROT 7.7 g/dl (6.4-8.2)
[2022-04-21 04:04] LABS: PH,URINE 5.5 (5.0-8.0); URINE APPEARANCE CLEAR; URINE BILIRUBIN NEGATIVE (NEGATIVE); URINE COLOR YELLOW; URINE GLUCOSE (UA) NEGATIVE (NEGATIVE); URINE KETONE NEGATIVE (NEGATIVE); URINE LEUK ESTERASE NEGATIVE (NEGATIVE); URINE NITRITE NEGATIVE (NEGATIVE); URINE PROTEIN TRACE (NEGATIVE); URINE UROBILINOGEN 0.2 mg/dL (0.2-1.0)
== END 2022-04-21 04:38 | disposition home or self-care (01) ==
LOC: JER 00:30
PROC: 3E033NZ Introduction of Analgesics, Hypnotics, Sedatives into Peripheral Vein, Percutaneous Approach (ICD-10-PCS; principal; 2022-04-21)
DX: F10.10 Alcohol abuse, uncomplicated (principal); R10.9 Unspecified abdominal pain; R11.10 Vomiting, unspecified
CPT/HCPCS: 36415; 80053; 81003; 82962; 83690; 85025; 87086; 93005; 93010; 99284-25

== ENCOUNTER 2022-06-14 09:56 | Emergency (ER) | payer OTHER ==
[2022-06-14 10:05] VITALS: BP 135/71; PULSE 79; RESP 18; TEMP 98.2; BMI 36.3
[2022-06-14] MEDS ORDERED: SODIUM CHLORIDE 0.9% 500 ML INFUS.BAG IV ONE (10:29)
[2022-06-14] MEDS ORDERED: ACETAMINOPHEN 1000 MG/100 ML BAG IVPB ONE (10:29)
[2022-06-14] MEDS ORDERED: ACETAMINOPHEN 500 MG TABLET (FP) PO ONE (10:31)
[2022-06-14] MEDS ORDERED: ACETAMINOPHEN 500 MG TABLET (FP) ONE (10:34)
[2022-06-14 11:02] LABS: PH,URINE 6.5 (5.0-8.0); URINE APPEARANCE CLEAR; URINE BILIRUBIN NEGATIVE (NEGATIVE); URINE COLOR YELLOW; URINE GLUCOSE (UA) NEGATIVE (NEGATIVE); URINE KETONE NEGATIVE (NEGATIVE); URINE LEUK ESTERASE NEGATIVE (NEGATIVE); URINE NITRITE NEGATIVE (NEGATIVE); URINE PROTEIN NEGATIVE (NEGATIVE); URINE UROBILINOGEN 0.2 mg/dL (0.2-1.0)
[2022-06-14 11:03] LABS: BASO % 0.7 % (0-2.0); EOS % 1.3 % (0-4.5); HEMATOCRIT 38.2 % (32.4-45.2); HEMOGLOBIN 13.4 GM/dL (10.7-15.3); LYMPH % 25.7 % (8-40); MCH 30.7 pg (25.7-33.7); MEAN CELL VOLUME 87.8 fl (80-96); MEAN PLT VOLUME 8.1 fl (7.5-11.1); MONO % 5.7 % (3.8-10.2); NEUT % 66.6 % (42.8-82.8); PLATELET COUNT 248 10^3/uL (134-434); RBC 4.35 M/mm3 (3.60-5.2)
[2022-06-14] MEDS ORDERED: ALBUTEROL SO4 2.5/IPRATROPIUM 0.5 INH SOL 3 ML VIAL.NEB. NEB ONE (11:19)
[2022-06-14 11:30] LABS: CHLORIDE 104 mmol/L (98-107); SODIUM 140 mmol/L (136-145)
[2022-06-14 11:32] LABS: ALBUMIN 3.6 g/dl (3.4-5.0); ANION GAP 7 MMOL/L (8-16); BLOOD UREA NITROGEN 9.1 mg/dL (7-18); CO2 29 mmol/L (21-32); GLUCOSE,RANDOM 196 mg/dL (74-106)
[2022-06-14 11:34] LABS: CREATININE 0.6 mg/dL (0.55-1.3); SGOT/AST 62 U/L (15-37); SGPT/ALT 99 U/L (13-61)
[2022-06-14 11:36] LABS: BILIRUBIN,TOTAL 0.4 mg/dL (0.2-1); TOT PROT 7.2 g/dl (6.4-8.2)
[2022-06-14 11:38] LABS: ALK PHOS 96 U/L (45-117)
== END 2022-06-14 12:41 | disposition home or self-care (01) ==
LOC: JER 09:56
DX: N83.202 Unspecified ovarian cyst, left side (principal)
CPT/HCPCS: 36415; 76817-TC; 80053; 81003; 84702; 84703; 85025; 86850; 86900; 86901; 87086; 99284-25

== ENCOUNTER 2022-07-24 19:44 | Emergency (ER) | payer OTHER ==
[2022-07-24 20:00] VITALS: BP 139/86; PULSE 83; RESP 18; TEMP 98.2; BMI 39.0
[2022-07-24] MEDS ORDERED: ACETAMINOPHEN 1000 MG/100 ML BAG IVPB ONE (21:06)
[2022-07-24] MEDS ORDERED: ACETAMINOPHEN INJECTION 100 ML IVPB ONE (21:13)
[2022-07-24 21:44] LABS: HEMATOCRIT 40.8 % (32.4-45.2); HEMOGLOBIN 13.7 GM/dL (10.7-15.3); MCH 29.7 pg (25.7-33.7); MCHC 33.6 g/dl (32.0-36.0); MEAN CELL VOLUME 88.5 fl (80-96); MEAN PLT VOLUME 8.7 fl (7.5-11.1); PLATELET COUNT 299 10^3/uL (134-434); RBC 4.61 M/mm3 (3.60-5.2); RDW 13.2 % (11.6-15.6); WHITE BLOOD COUNT 10.8 K/mm3 (4.0-10.0)
[2022-07-24 21:53] LABS: PH,URINE 6.5 (5.0-8.0); URINE APPEARANCE CLEAR; URINE BILIRUBIN NEGATIVE (NEGATIVE); URINE COLOR YELLOW; URINE GLUCOSE (UA) NEGATIVE (NEGATIVE); URINE KETONE TRACE (NEGATIVE); URINE LEUK ESTERASE NEGATIVE (NEGATIVE); URINE NITRITE NEGATIVE (NEGATIVE); URINE PROTEIN TRACE (NEGATIVE)
[2022-07-24 21:57] LABS: ALBUMIN 3.8 g/dl (3.4-5.0); MAGNESIUM 2.1 mg/dL (1.8-2.4)
[2022-07-24 21:59] LABS: CREATININE 0.6 mg/dL (0.55-1.3)
[2022-07-24 22:01] LABS: BILIRUBIN,TOTAL 0.3 mg/dL (0.2-1); TOT PROT 7.8 g/dl (6.4-8.2)
[2022-07-24] MEDS ORDERED: SODIUM CHLORIDE 0.9% 500 ML INFUS.BAG IV ONE (23:04)
[2022-07-24] MEDS ORDERED: FAMOTIDINE 20 MG/50 ML IVPB 20 MG/50 ML MG IVPB ONE (23:04)
[2022-07-24] MEDS ORDERED: ONDANSETRON 4 MG/2 ML VIAL IVPUSH ONE (23:04)
[2022-07-24] MEDS ORDERED: ONDANSETRON 4 MG/2 ML VIAL ONE (23:12)
[2022-07-24] MEDS ORDERED: FAMOTIDINE 10 MG/ML VIAL IVPB ONE (23:12)
== END 2022-07-25 01:41 | disposition home or self-care (01) ==
LOC: JER 19:44
PROC: 3E0333Z Introduction of Anti-inflammatory into Peripheral Vein, Percutaneous Approach (ICD-10-PCS; principal; 2022-07-24)
PROC: 3E033GC Introduction of Other Therapeutic Substance into Peripheral Vein, Percutaneous Approach (ICD-10-PCS; 2022-07-24)
PROC: 3E033GC Introduction of Other Therapeutic Substance into Peripheral Vein, Percutaneous Approach (ICD-10-PCS; 2022-07-24)
DX: R11.10 Vomiting, unspecified (principal); R10.9 Unspecified abdominal pain
CPT/HCPCS: 36415; 74177-TC; 76705-TC; 80053; 81003; 83690; 83735; 84703; 85027; 87086; 93005; 93010; 99285-25; Q9967

== ENCOUNTER 2022-07-31 16:37 | Emergency (ER) | payer OTHER ==
[2022-07-31 16:50] VITALS: BP 140/69; PULSE 78; RESP 19; TEMP 98.1; BMI 25.2
== END 2022-07-31 20:18 | disposition home or self-care (01) ==
LOC: JER 16:37
DX: B34.9 Viral infection, unspecified (principal)
CPT/HCPCS: 0241U-QW; 71046-TC-FY; 99284-25

== ENCOUNTER 2022-09-03 11:47 | Emergency (ER) | payer OTHER ==
[2022-09-03 12:24] VITALS: BP 148/83; PULSE 80; RESP 20; TEMP 98.7; BMI 37.5
== END 2022-09-03 13:00 | disposition home or self-care (01) ==
LOC: JER 11:47
DX: R09.81 Nasal congestion (principal); R06.9 Unspecified abnormalities of breathing
CPT/HCPCS: 0241U-QW; 71046-TC-FY; 99284-25

== ENCOUNTER 2022-12-21 16:34 | Emergency (ER) | payer OTHER ==
[2022-12-21 16:53] VITALS: BP 106/67; PULSE 68; RESP 18; TEMP 98.2; BMI 38.3
[2022-12-21] MEDS ORDERED: ACETAMINOPHEN 500 MG TABLET (FP) PO ONE (18:49)
[2022-12-21] MEDS ORDERED: ACETAMINOPHEN 325 MG TABLET (FP) ONE (20:14)
== END 2022-12-21 20:55 | disposition home or self-care (01) ==
LOC: JER 16:34
PROC: 2W3SX1Z Immobilization of Right Foot using Splint (ICD-10-PCS; principal; 2022-12-21)
DX: S92.324A Nondisplaced fracture of second metatarsal bone, right foot, initial encounter for closed fracture (principal); M79.671 Pain in right foot; R22.41 Localized swelling, mass and lump, right lower limb; R60.0 Localized edema; W18.40XA Slipping, tripping and stumbling without falling, unspecified, initial encounter; X50.1XXA Overexertion from prolonged static or awkward postures, initial encounter; Y92.002 Bathroom of unspecified non-institutional (private) residence as the place of occurrence of the external cause
CPT/HCPCS: 73610-TC-RT-FY; 73630-TC-RT-FY; 99283-25

== ENCOUNTER 2023-08-07 12:13 | Emergency (ER) | payer OTHER ==
[2023-08-07 12:20] VITALS: BP 127/74; PULSE 71; RESP 18; TEMP 98; BMI 38.3
[2023-08-07] MEDS ORDERED: ACETAMINOPHEN 500 MG TABLET (FP) PO ONE (14:23)
[2023-08-07] MEDS ORDERED: ACETAMINOPHEN 500 MG TABLET (FP) ONE (14:31)
[2023-08-07 14:43] LABS: EPI CELLS >36 /uL (0-25.1); HYALINE CASTS 4 /uL (0-3.1); PH,URINE 6.5 (5.0-8.0); URINE APPEARANCE CLOUDY; URINE BACTERIA 2961 /uL (0-1359); URINE BILIRUBIN NEGATIVE (NEGATIVE); URINE COLOR YELLOW; URINE GLUCOSE (UA) NEGATIVE (NEGATIVE); URINE KETONE NEGATIVE (NEGATIVE); URINE LEUK ESTERASE NEGATIVE (NEGATIVE); URINE NITRITE NEGATIVE (NEGATIVE); URINE PROTEIN NEGATIVE (NEGATIVE); URINE RBC 12 /uL (0-23.9); URINE UROBILINOGEN 0.2 mg/dL (0.2-1.0); URINE WBC 27 /uL (0-25.8)
[2023-08-07 14:53] LABS: HCG,QUALITATIVE URINE Negative; YEAST NEGATIVE (NEGATIVE)
== END 2023-08-07 15:12 | disposition home or self-care (01) ==
LOC: JER 12:13 → JERFT 12:13
DX: M54.50 Low back pain, unspecified (principal); S39.012A Strain of muscle, fascia and tendon of lower back, initial encounter; X50.1XXA Overexertion from prolonged static or awkward postures, initial encounter
CPT/HCPCS: 81003; 84703; 87086; 99283-25

== ENCOUNTER 2023-09-23 10:39 | Emergency (ER) | payer OTHER ==
[2023-09-23 11:04] VITALS: BP 125/66; RESP 18; BMI 38.3
[2023-09-23] MEDS ORDERED: ACETAMINOPHEN 325 MG TABLET (FP) ONE (12:19)
[2023-09-23] MEDS: ACETAMINOPHEN 500 MG TABLET (FP) PO ONE (12:20)
[2023-09-23 12:28] VITALS: PULSE 95; TEMP 99.3
== END 2023-09-23 12:27 | disposition home or self-care (01) ==
LOC: JERFT 10:39 → JER 10:39 → JERFT 12:27
DX: R05.9 Cough, unspecified (principal); R50.9 Fever, unspecified; B34.9 Viral infection, unspecified; Z20.822 Contact with and (suspected) exposure to COVID-19
CPT/HCPCS: 0241U-QW; 99283-25

== ENCOUNTER 2023-11-13 11:41 | Emergency (ER) | payer OTHER ==
[2023-11-13 11:48] VITALS: BP 134/84; PULSE 74; RESP 18; TEMP 98.2; BMI 36.3
[2023-11-13] MEDS ORDERED: ACETAMINOPHEN 325 MG TABLET (FP) ONE (12:39)
[2023-11-13] MEDS ORDERED: RABIES IMMUNE GLOBULIN 300 UNITS/1 ML VIAL ONE (12:39)
[2023-11-13] MEDS ORDERED: RABIES VACCINE (PCEC)/PF 2.5 UNIT/VIAL IM ONE (12:40)
[2023-11-13] MEDS: ACETAMINOPHEN 325 MG TABLET (FP) PO ONE (12:45)
[2023-11-13] MEDS: RABIES VACCINE (PCEC)/PF 2.5 UNIT/VIAL IM ONE (12:50)
[2023-11-13] MEDS: RABIES IMMUNE GLOBULIN 300 UNITS/1 ML VIAL IM ONE (12:50)
== END 2023-11-13 13:33 | disposition home or self-care (01) ==
LOC: JERFT 11:41
PROC: 3E0234Z Introduction of Serum, Toxoid and Vaccine into Muscle, Percutaneous Approach (ICD-10-PCS; principal; 2023-11-13)
DX: S71.131A Puncture wound without foreign body, right thigh, initial encounter (principal); W54.0XXA Bitten by dog, initial encounter
CPT/HCPCS: 90375; 90675; 99284-25

== ENCOUNTER 2023-11-16 20:21 | Emergency (ER) | payer OTHER ==
[2023-11-16] MEDS ORDERED: RABIES VACCINE (PCEC)/PF 2.5 UNIT/VIAL IM ONE (20:36)
[2023-11-16 20:46] VITALS: BP 129/83; PULSE 81; RESP 18; TEMP 98.4; BMI 36.3
[2023-11-16] MEDS ORDERED: SULFAMETHOXAZOLE/TRIMETHOPRIM 800MG/160MG D.S. TABLET ONE (20:46)
[2023-11-16] MEDS ORDERED: metroNIDAZOLE 250 MG TABLET ONE (20:46)
[2023-11-16] MEDS: RABIES VACCINE (PCEC)/PF 2.5 UNIT/VIAL IM ONE (20:50)
[2023-11-16] MEDS: SULFAMETHOXAZOLE/TRIMETHOPRIM 800MG/160MG D.S. TABLET PO ONE (20:50)
[2023-11-16] MEDS: metroNIDAZOLE 250 MG TABLET PO ONE (20:50)
== END 2023-11-16 20:56 | disposition home or self-care (01) ==
LOC: JER 20:21
PROC: 3E0234Z Introduction of Serum, Toxoid and Vaccine into Muscle, Percutaneous Approach (ICD-10-PCS; principal; 2023-11-16)
DX: Z29.14 Encounter for prophylactic rabies immune globulin (principal); S71.151D Open bite, right thigh, subsequent encounter; L03.115 Cellulitis of right lower limb; W54.0XXD Bitten by dog, subsequent encounter
CPT/HCPCS: 90675; 99283-25

== ENCOUNTER 2023-11-20 14:49 | Emergency (ER) | payer OTHER ==
[2023-11-20 14:54] VITALS: BP 123/65; PULSE 65; RESP 18; TEMP 98; BMI 36.3
[2023-11-20] MEDS ORDERED: RABIES VACCINE (PCEC)/PF 2.5 UNIT/VIAL IM ONE (15:40)
[2023-11-20] MEDS: RABIES VACCINE (PCEC)/PF 2.5 UNIT/VIAL IM ONE (16:07)
== END 2023-11-20 16:09 | disposition home or self-care (01) ==
LOC: JERFT 14:49
PROC: 3E0234Z Introduction of Serum, Toxoid and Vaccine into Muscle, Percutaneous Approach (ICD-10-PCS; principal; 2023-11-20)
DX: Z20.3 Contact with and (suspected) exposure to rabies (principal)
CPT/HCPCS: 90675; 99282-25

== ENCOUNTER 2024-03-21 13:57 | Emergency (ER) | payer OTHER ==
[2024-03-21 14:13] VITALS: BMI 39.6
[2024-03-21] MEDS ORDERED: ACETAMINOPHEN INJECTION 100 ML IVPB ONE (15:13)
[2024-03-21 15:19] LABS: BASO % 0.9 % (0-2.0); EOS % 1.2 % (0-4.5); HEMATOCRIT 37.5 % (32.4-45.2); HEMOGLOBIN 12.9 GM/dL (10.7-15.3); LYMPH % 23.9 % (8-40); MCH 29.2 pg (25.7-33.7); MCHC 34.3 g/dl (32.0-36.0); MEAN CELL VOLUME 85.4 fl (80-96); MONO % 5.9 % (3.8-10.2); NEUT % 68.1 % (42.8-82.8); PLATELET COUNT 296 10^3/uL (134-434); RBC 4.39 M/mm3 (3.60-5.2); RDW 13.4 % (11.6-15.6)
[2024-03-21] MEDS: SODIUM CHLORIDE 0.9% 500 ML INFUS.BAG IV ONE (15:19)
[2024-03-21] MEDS: ACETAMINOPHEN 1000 MG/100 ML BAG IVPB ONE (15:19)
[2024-03-21 15:20] LABS: URINE APPEARANCE CLEAR; URINE BILIRUBIN NEGATIVE (NEGATIVE); URINE COLOR YELLOW; URINE GLUCOSE (UA) NEGATIVE (NEGATIVE); URINE KETONE NEGATIVE (NEGATIVE); URINE LEUK ESTERASE NEGATIVE (NEGATIVE); URINE NITRITE NEGATIVE (NEGATIVE); URINE PROTEIN NEGATIVE (NEGATIVE); URINE UROBILINOGEN 0.2 mg/dL (0.2-1.0)
[2024-03-21 16:09] LABS: POTASSIUM 3.7 mmol/L (3.5-5.1)
[2024-03-21 16:11] LABS: CALCIUM 9.2 mg/dL (8.5-10.1)
[2024-03-21 16:12] LABS: ALBUMIN 3.9 g/dl (3.4-5.0); BLOOD UREA NITROGEN 11.9 mg/dL (7-18)
[2024-03-21 16:15] LABS: CREATININE 0.7 mg/dL (0.55-1.3)
[2024-03-21 16:16] LABS: BILIRUBIN,TOTAL 0.3 mg/dL (0.2-1); TOT PROT 7.6 g/dl (6.4-8.2)
[2024-03-21] MEDS ORDERED: LIDOCAINE 5% TOPICAL PATCH ONE (17:09)
[2024-03-21] MEDS: LIDOCAINE 5% TOPICAL PATCH TP ONE (17:15)
[2024-03-21 17:20] VITALS: BP 122/72; PULSE 76; RESP 19; TEMP 97.8
[2024-03-21] MEDS ORDERED: LIDOCAINE PATCH REMOVAL MC ONE (22:00)
== END 2024-03-21 17:20 | disposition home or self-care (01) ==
LOC: JER 13:57
PROC: 3E033NZ Introduction of Analgesics, Hypnotics, Sedatives into Peripheral Vein, Percutaneous Approach (ICD-10-PCS; principal; 2024-03-21)
DX: M54.50 Low back pain, unspecified (principal); R10.9 Unspecified abdominal pain; R42 Dizziness and giddiness; R20.0 Anesthesia of skin
CPT/HCPCS: 36415; 80053; 81003; 84703; 85025; 87086; 99284-25; J0131

== ENCOUNTER 2024-12-11 08:35 | Emergency (ER) | payer OTHER ==
[2024-12-11 08:41] VITALS: BP 145/76; PULSE 63; RESP 20; TEMP 97.6; BMI 30.9
[2024-12-11] MEDS ORDERED: ACETAMINOPHEN 500 MG TABLET (FP) ONE (10:32)
[2024-12-11] MEDS ORDERED: METHOCARBAMOL 500 MG TABLET ONE (10:32)
[2024-12-11] MEDS ORDERED: LIDOCAINE 5% TOPICAL PATCH ONE (10:33)
[2024-12-11] MEDS: ACETAMINOPHEN 500 MG TABLET (FP) PO ONE (10:40)
[2024-12-11] MEDS: METHOCARBAMOL 500 MG TABLET PO ONE (10:40)
[2024-12-11] MEDS: LIDOCAINE 5% TOPICAL PATCH TP ONE (10:40)
[2024-12-11 12:26] LABS: HCV DIAGNOSTIC IN-HOUSE W/RFLX NON-REACTIVE (NONREACTIVE)
[2024-12-11 12:27] LABS: HIV INTERPRETATION NEGATIVE (NEGATIVE)
[2024-12-11 13:10] LABS: EPI CELLS 31 /uL (0-25.1); HYALINE CASTS 0 /uL (0-3.1); URINE APPEARANCE CLOUDY; URINE BACTERIA 878 /uL (0-1359); URINE BILIRUBIN NEGATIVE (NEGATIVE); URINE COLOR YELLOW; URINE GLUCOSE (UA) NEGATIVE (NEGATIVE); URINE KETONE NEGATIVE (NEGATIVE); URINE LEUK ESTERASE NEGATIVE (NEGATIVE); URINE NITRITE NEGATIVE (NEGATIVE); URINE PROTEIN NEGATIVE (NEGATIVE); URINE UROBILINOGEN 0.2 mg/dL (0.2-1.0); URINE WBC 13 /uL (0-25.8)
[2024-12-11 13:50] LABS: URINE RBC 87 /uL (0-23.9); YEAST NOT PRESENT (NEGATIVE)
[2024-12-11] MEDS ORDERED: LIDOCAINE PATCH REMOVAL MC SCH (22:00)
== END 2024-12-11 17:11 | disposition home or self-care (01) ==
LOC: JERFT 08:35
DX: M54.50 Low back pain, unspecified (principal)
CPT/HCPCS: 36415; 72100-TC-FY; 72131-TC; 81003; 84703; 86803; 87086; 87389; 99285-25